=== PATIENT | female | born 1970 | race Two or more races ===

== ENCOUNTER → 2020-05-16 10:20 | Outpatient (BNVA) | payer OTHER, SELFPAY | PROVIDERS: PCP Internal Medicine; Referring Provider Internal Medicine; Visit Provider Nurse Practitioner | DX: K59.04 Chronic idiopathic constipation (principal); K21.9 Gastro-esophageal reflux disease without esophagitis; Q44.6 Cystic disease of liver | CPT/HCPCS: 99213 ==

== ENCOUNTER → 2020-06-12 13:35 | Outpatient (BNVA) | payer OTHER, SELFPAY | PROVIDERS: PCP Internal Medicine; Referring Provider Internal Medicine; Visit Provider Student in an Organized Health Care Education/Training Program | DX: M47.816 Spondylosis without myelopathy or radiculopathy, lumbar region (principal); Z79.899 Other long term (current) drug therapy | CPT/HCPCS: 99212 ==

== ENCOUNTER 2020-07-11 09:00 | Outpatient (RCR) | payer OTHER, SELFPAY ==
--- NOTE | 2020-06-14 10:44 | MHC.PT.EP ---
[facility] [place] [facility] [place] [facility] [place] [facility] [address] [place] [address] [phone] F: [phone] F: [phone] F: [phone] F: [phone] Physical Therapy Plan of Care Date of Evaluation: 06/14/20 Date of Surgery: N/A Diagnosis: M47.816 spondylosis without myelopathy or radiculopathy, lumbar region Assessment: pt presents to physical therapy with pain, decreased range of motion, decreased strength, impaired functional mobility, impaired postural awareness, and gait deviations. pt is a good candidate for skilled PT due to age, potential remediation of impairments, typical disease/condition progression and prognosis, comorbidities, and motivation. pt would benefit from tailored strengthening and stretching exercise program, functional training, gait training, postural re-training, neuromuscular re-education, modalities as needed for pain, equipment safety demonstration. Frequency and Duration: The patient will be seen 2x/wk for 4 wks Short Term Goals: pt will be I w/ HEP to promote self-management of condition. pt will demo proper sitting posture w/ lumbar roll to facilitate neutral spine. Usp Goals: pt will report <1/10 low back pain w/ standing for >30 min to facilitate full return to ADLs. pt will lift >30# object from floor to waist level w/ proper lifting mechanics x3 reps to facilitate full return to seat builder. Treatment Plan: Modalities to reduce pain, spasms and effusion. Manual therapy to restore motion and function. Therapeutic exercise to improve strength and flexibility. Neuromuscular re-education for posture and balance. Therapeutic activities to return to functional activities of daily living. Please sign and return to therapist. Thank you for your referral.
--- NOTE | 2020-07-12 09:28 | MHC.PT.DC ---
[facility] [place] [facility] [place] [facility] [place] Office [address] [phone] F: [phone] F: [phone] F: [phone] F: [phone] Physical Therapy Discharge Report Diagnosis: M47.816 spondylosis without myelopathy or radiculopathy, lumbar region Date of Surgery: N/A Date of Evaluation: 06/14/20 Date of Discharge: 07/12/20 Treatments to Date: 8 Cancellations to Date: 0 No Shows to Date: 0 Discharge Status: Improved Function Independent with HEP Recommend MD Follow-up Discharge Summary: The patient stated she feels physical therapy has helped her and she is a little better. She was still reporting high levels of pain even toward the end of the plan of care but insisted she is better. She would benefit from following up with her referring provider to assess other potential pain management options. She is independent with her home exercise program. She is discharged from this physical therapy plan of care. Electronically signed by: Paty Lee PT, DPT Please sign and return to therapist. Thank you for your referral.
== END 2020-07-12 09:28 | disposition other institution (70) ==
LOC: HO.PT 09:00
PROVIDERS: Visit Provider Student in an Organized Health Care Education/Training Program
DX: M47.816 Spondylosis without myelopathy or radiculopathy, lumbar region (principal)
CPT/HCPCS: 97110; 97161; 97530

== ENCOUNTER 2020-09-23 09:17 | Outpatient (REF) | payer OTHER, SELFPAY ==
--- NOTE | ~2020-09-23 | XR_ITS ---
EXAMINATION: RIGHT ELBOW, LEFT SHOULDER AND RIGHT KNEE X-RAY CLINICAL INFORMATION: Pain COMPARISON: None TECHNIQUE: 3 views of the right elbow, 4 views of the left shoulder and 4 views of the right knee FINDINGS: Right elbow: Bone alignment is normal. No fracture or dislocation is seen. Joint spaces are normal. Soft tissues are normal. Left shoulder: Bone alignment is normal. No acute fracture or dislocation is seen. There is a cortical irregularity of the superior lateral humeral head questionable for old Hill-Sachs deformity. Joint spaces are normal. Soft tissues are normal. Right knee: Bone alignment is normal. No fracture or dislocation is seen. The joint spaces are normal. There is no joint effusion. XR/XR knee RT 4V IMPRESSION: Normal right elbow and right knee. Left shoulder: Question old Hill-Sachs deformity of the left humeral head..
--- NOTE | ~2020-09-23 | XR_ITS ---
EXAMINATION: RIGHT ELBOW, LEFT SHOULDER AND RIGHT KNEE X-RAY CLINICAL INFORMATION: Pain COMPARISON: None TECHNIQUE: 3 views of the right elbow, 4 views of the left shoulder and 4 views of the right knee FINDINGS: Right elbow: Bone alignment is normal. No fracture or dislocation is seen. Joint spaces are normal. Soft tissues are normal. Left shoulder: Bone alignment is normal. No acute fracture or dislocation is seen. There is a cortical irregularity of the superior lateral humeral head questionable for old Hill-Sachs deformity. Joint spaces are normal. Soft tissues are normal. Right knee: Bone alignment is normal. No fracture or dislocation is seen. The joint spaces are normal. There is no joint effusion. XR/XR elbow RT 2V IMPRESSION: Normal right elbow and right knee. Left shoulder: Question old Hill-Sachs deformity of the left humeral head..
--- NOTE | ~2020-09-23 | XR_ITS ---
EXAMINATION: RIGHT ELBOW, LEFT SHOULDER AND RIGHT KNEE X-RAY CLINICAL INFORMATION: Pain COMPARISON: None TECHNIQUE: 3 views of the right elbow, 4 views of the left shoulder and 4 views of the right knee FINDINGS: Right elbow: Bone alignment is normal. No fracture or dislocation is seen. Joint spaces are normal. Soft tissues are normal. Left shoulder: Bone alignment is normal. No acute fracture or dislocation is seen. There is a cortical irregularity of the superior lateral humeral head questionable for old Hill-Sachs deformity. Joint spaces are normal. Soft tissues are normal. Right knee: Bone alignment is normal. No fracture or dislocation is seen. The joint spaces are normal. There is no joint effusion. XR/XR shoulder LT min 2V IMPRESSION: Normal right elbow and right knee. Left shoulder: Question old Hill-Sachs deformity of the left humeral head..
== END 2020-09-23 09:18 | disposition home or self-care (01) ==
LOC: HO.XRAY 09:17
PROVIDERS: PCP Internal Medicine; Visit Provider Internal Medicine
DX: M25.512 Pain in left shoulder (principal); M25.521 Pain in right elbow; M25.561 Pain in right knee
CPT/HCPCS: 73030; 73070; 73564

== ENCOUNTER → 2020-11-04 10:08 | Outpatient (BNVA) | payer OTHER, SELFPAY | PROVIDERS: PCP Internal Medicine; Visit Provider Nurse Practitioner ==

== ENCOUNTER 2020-11-13 08:36 | Outpatient (REF) | payer OTHER, SELFPAY ==
[2020-11-13 09:39] LABS: Alanine Aminotransferase 16 U/L (0-31); Albumin Level 3.9 g/dL (3.5-5.0); Alkaline Phosphatase 64 U/L (39-117); Anion Gap 9 (12-20); Aspartate Amino Transferase 18 U/L (5-31); Bilirubin Total 0.3 mg/dL (0.0-1.0); Blood Urea Nitrogen 14 mg/dL (9-16); Calcium 9.3 mg/dL (8.4-10.2); Carbon Dioxide 26 mmol/L (22-29); Chloride 106 mmol/L (96-108); Estimated Glomerular Filt Rate > 60; Glucose Random 109 mg/dL (60-115); Potassium 4.3 mmol/L (3.3-5.1); Sodium 137 mmol/L (135-145); Total Protein 7.2 g/dL (6.5-8.0)
[2020-11-13 09:54] LABS: TSH reflex Free T4 1.35 uIU/mL (0.32-4.0)
[2020-11-14 13:12] LABS: Alpha Fetoprotein 1.1 ng/mL
== END 2020-11-13 08:37 | disposition home or self-care (01) ==
LOC: HO.LAB 08:36
PROVIDERS: PCP Internal Medicine; Visit Provider Nurse Practitioner
DX: K21.9 Gastro-esophageal reflux disease without esophagitis (principal); K59.04 Chronic idiopathic constipation; Q44.6 Cystic disease of liver; R68.81 Early satiety; R10.13 Epigastric pain
CPT/HCPCS: 36415; 80053; 82105; 84443

== ENCOUNTER 2020-11-19 07:35 | Outpatient (REF) | payer OTHER, SELFPAY ==
--- NOTE | ~2020-11-19 | US_ITS ---
EXAMINATION: US ABDOMEN COMPLETE CLINICAL INFORMATION: Epigastric pain. Cystic disease of liver. GERD. COMPARISON: Ultrasound abdomen 03/29/2019 and 02/16/2017. MR abdomen 11/28/2014. TECHNIQUE: Real-time imaging of the abdominal viscera. FINDINGS: PANCREAS: Normal. ABDOMINAL AORTA: The proximal, mid, and distal segments are normal in caliber. INFERIOR VENA CAVA: Visualized portions are normal. LIVER: Multiple hepatic cysts are redemonstrated with the largest in the left hepatic lobe measuring up to 3.0 cm (previously 2.3 cm) and right hepatic lobe measuring up to 5 cm (previously 3.7 cm). The liver is normal in size. The liver contour is normal. Mildly increased hepatic parenchymal echogenicity, which can be seen in the setting of mild steatosis. Underlying hepatocellular disease cannot be excluded. There is no intrahepatic biliary duct dilatation seen. GALLBLADDER: Normal. The gallbladder is physiologically distended without evidence of stones, sludge, polyps, wall thickening, or pericholecystic fluid. COMMON BILE DUCT: Normal in caliber measuring 0.46 cm in diameter. RIGHT KIDNEY: Normal. No hydronephrosis. No renal calculi or focal parenchymal lesions. The kidney measures 11.3 cm in maximum dimension. LEFT KIDNEY: Normal. No hydronephrosis. No renal calculi or focal parenchymal lesions. The kidney measures 11.0 cm in maximum dimension. SPLEEN: Probable 1.1 cm splenule. The spleen measures 7.2 cm in maximum dimension. FREE FLUID: None. US/US abdomen complete IMPRESSION: Redemonstration of multiple hepatic cysts, slightly increased in size when compared to the examination from 2019. No solid hepatic parenchymal lesion or biliary ductal dilatation.
== END 2020-11-19 07:36 | disposition home or self-care (01) ==
LOC: HO.US 07:35
PROVIDERS: PCP Internal Medicine; Visit Provider Nurse Practitioner
DX: K59.04 Chronic idiopathic constipation (principal); K21.9 Gastro-esophageal reflux disease without esophagitis; Q44.6 Cystic disease of liver; R10.13 Epigastric pain; R68.81 Early satiety
CPT/HCPCS: 76700

== ENCOUNTER → 2020-11-26 09:05 | Outpatient (BNVA) | payer OTHER, SELFPAY | PROVIDERS: PCP Internal Medicine; Visit Provider Nurse Practitioner ==

== ENCOUNTER → 2020-12-11 08:18 | Outpatient (REF) | payer OTHER, SELFPAY ==
--- NOTE | ~2020-12-11 | NM_ITS ---
EXAMINATION: RADIONUCLIDE SOLID FOOD GASTRIC EMPTYING 4-HOUR STUDY CLINICAL INFORMATION: Epigastric pain, nausea, GERD, fullness, burning COMPARISON: None. TECHNIQUE: A modified standard meal consisting of 1 oz of Egg Beaters brand tagged with 1 mCi Tc-99m Sulfur Colloid, 6 oz water, no and toast was administered orally to the patient. Images were obtained using a dual head gamma camera in the anterior and posterior projections over of the stomach immediately post ingestion and at hourly intervals up to 3 hours post ingestion. Images were not obtained at 4 hours due to the minimal retention at 3 hours. The anterior and posterior counts at each time interval were averaged using the geometric mean and expressed as percentage of the immediate post ingestion counts. FINDINGS: The patient was not able to ingest the entire standard meal normally consisting of 4 ounces of egg whites, toast, and jelly and 8 ounces of water. There is good visualization of activity in the stomach immediately post ingestion. As the study progresses, there is good clearance of activity from the stomach and visualization of progressively increasing small bowel activity. By the end of the study, there is almost no retention noted in the stomach. Retention in the stomach at each time interval was: 1 hour 55% (normal 37%-90%) 2 hours 32% (normal 30%-60%) 3 hours 2% 4 hours (Not Obtained) (normal 0%-10%) NM/NM gastric emptying study IMPRESSION: Probable normal solid food gastric emptying study. Because the patient was not able to ingest fully the standard meal, the measured retention may not reflect gastric emptying following a full meal but the minimal retention noted suggests no significant abnormal retention of solid food is present.
== END ==
LOC: HO.NUCMED 08:18
PROVIDERS: PCP Internal Medicine; Visit Provider Nurse Practitioner
DX: Q44.6 Cystic disease of liver (principal); R10.13 Epigastric pain; R68.81 Early satiety
CPT/HCPCS: 78264; A9541

== ENCOUNTER → 2021-01-30 09:16 | Outpatient (BNVA) | payer OTHER, SELFPAY | PROVIDERS: PCP Internal Medicine; Visit Provider Nurse Practitioner ==

== ENCOUNTER 2021-03-04 13:50 | Outpatient (REF) | payer OTHER, SELFPAY ==
--- NOTE | ~2021-03-04 | MM_ITS ---
EXAMINATION: MM SCREENING DIGITAL BREAST TOMOSYNTHESIS, BILATERAL CLINICAL INFORMATION: Screening. Asymptomatic. The lifetime risk of breast cancer based on the Tyrer-Cuzick Model is 7.7%. COMPARISON: Mammography: 02/27/2020 and studies dating back to 10/08/2014. TECHNIQUE: Digital breast tomosynthesis is performed in both the craniocaudal and mediolateral oblique views along with computer-aided detection (CAD). Synthesized 2D images are generated from the tomosynthesis. FINDINGS: There are scattered areas of fibroglandular density (ACR BI-RADS breast composition Category b). There is a stable parenchymal pattern within the right breast. Within the deep medial aspect of the left breast there is a region of architectural distortion with a lucent central region which is more prominent than on prior studies. Spot compression views and possible ultrasound at this location recommended. MM/MM tomosynthesis screening BI IMPRESSION: Left breast density for further evaluation as described above. ASSESSMENT: BI-RADS 0: Incomplete - Need Additional Imaging Evaluation RECOMMENDATION: 1. Additional views of the left breast. 2. Targeted ultrasound if warranted after review of the additional views. 3. Radiology department staff will contact the patient for additional imaging. This patient's information was entered into a reminder system with a target due date for their next mammogram.
== END 2021-03-04 13:51 | disposition home or self-care (01) ==
LOC: HO.MAMMO 13:50
PROVIDERS: PCP Internal Medicine; Visit Provider Internal Medicine
DX: Z12.31 Encounter for screening mammogram for malignant neoplasm of breast (principal)
CPT/HCPCS: 77063; 77067

== ENCOUNTER 2021-03-07 08:24 | Outpatient (REF) | payer OTHER, SELFPAY ==
--- NOTE | ~2021-03-07 | MM_ITS ---
EXAMINATION: MM DIAGNOSTIC DIGITAL BREAST TOMOSYNTHESIS, LEFT CLINICAL INFORMATION: Recall for question of architectural changes medial left breast at screening. COMPARISON: Mammography: 03/04/2021, 02/27/2020, 01/25/2019 TECHNIQUE: Digital breast tomosynthesis is performed. 2D images are generated from the tomosynthesis. The following views are obtained: 3-D spot CC, 3-D spot MLO, standard ML. FINDINGS: There are scattered areas of fibroglandular density (ACR BI-RADS breast composition Category b). The additional views show no architectural abnormality. There is no three-dimensional mass or developing density appreciated. As a precaution, short interval six-month follow-up mammography will be requested to reassess. Results are discussed with the patient at time of visit, using an interpreter for the deaf. MM/MM tomosynthesis added views L IMPRESSION: Additional views show no architectural abnormality in the area of recent imaging concern. ASSESSMENT: BI-RADS 3: Probably Benign RECOMMENDATION: Diagnostic left mammography in 6 months. This patient's information was entered into a reminder system with a target due date for their next mammogram.
== END 2021-03-07 08:25 | disposition home or self-care (01) ==
LOC: HO.MAMMO 08:24
PROVIDERS: Visit Provider Internal Medicine
DX: R92.2 Inconclusive mammogram (principal)
CPT/HCPCS: 77061; 77065

== ENCOUNTER 2021-06-10 08:44 | Outpatient (REF) | payer OTHER, SELFPAY ==
--- NOTE | ~2021-06-10 | XR_ITS ---
EXAMINATION: XR LUMBOSACRAL SPINE CLINICAL INFORMATION: Spondylosis without myelopathy or radiculopathy COMPARISON: Previous lumbar spine x-ray December [address] of the lumbar spine August 2014 TECHNIQUE: Three views of the lumbosacral spine. FINDINGS: There is a transitional vertebral body segment or 6 lumbar-type vertebral bodies. For the purposes of this level are designated to match the prior exams from 2013 and 2014 with the transitional segment designated superiorly. Bone alignment is normal. No fracture or dislocation is seen. There is degenerative disc disease at L2-L3. There is lower lumbar spine facet arthritis. XR/XR lumbar spine 2-3V IMPRESSION: Transitional vertebral body segment. Degenerative disc disease at L2-L3 and lower lumbar spine facet arthritis.
[2021-06-10 10:39] LABS: Alanine Aminotransferase 15 U/L (0-31); Alkaline Phosphatase 58 U/L (39-117); Anion Gap 11 (12-20); Aspartate Amino Transferase 17 U/L (5-31); Bilirubin Total 0.3 mg/dL (0.0-1.0); Blood Urea Nitrogen 12 mg/dL (9-16); Calcium 9.6 mg/dL (8.4-10.2); Carbon Dioxide 27 mmol/L (22-29); Chloride 105 mmol/L (96-108); Estimated Glomerular Filt Rate > 60; Glucose Random 91 mg/dL (60-115); Potassium 4.6 mmol/L (3.3-5.1); Sodium 138 mmol/L (135-145); Total Protein 7.5 g/dL (6.5-8.0)
== END 2021-06-10 08:45 | disposition home or self-care (01) ==
LOC: HO.XRAY 08:44
PROVIDERS: PCP Internal Medicine; Visit Provider Nurse Practitioner Family
DX: M47.816 Spondylosis without myelopathy or radiculopathy, lumbar region (principal)
CPT/HCPCS: 36415; 72100; 80053; 99212

== ENCOUNTER 2021-09-08 12:47 | Outpatient (REF) | payer OTHER, SELFPAY ==
--- NOTE | ~2021-09-08 | MM_ITS ---
EXAMINATION: MM DIAGNOSTIC DIGITAL BREAST TOMOSYNTHESIS, LEFT CLINICAL INFORMATION: Short interval six-month follow-up for question of architectural changes on prior screening mammography with no persistent abnormality on additional views. Assess for developing density. No known family history breast cancer. The lifetime risk of breast cancer based on the Tyrer-Cuzick Model is 8%. COMPARISON: Mammography: 03/07/2021, 03/04/2021 (BI-RADS 0), 02/27/2020, 01/25/2019, 12/20/2017, 11/27/2016, 10/30/2015 TECHNIQUE: Digital breast tomosynthesis is performed in both the craniocaudal and mediolateral oblique views along with computer-aided detection (CAD). Synthesized 2D images are generated from the tomosynthesis. FINDINGS: There are scattered areas of fibroglandular density (ACR BI-RADS breast composition Category b). There are no architectural changes or developing density. No architectural distortion or mass or abnormal calcifications. Parenchymal pattern appears similar to prior studies. The skin contours are smooth. Results are provided to the patient at time of visit by the technologist. MM/MM tomosynthesis diagnostic LT IMPRESSION: No mammographic evidence of malignancy. ASSESSMENT: BI-RADS 2: Benign RECOMMENDATION: Routine annual mammography screening, due in 6 months. This patient's information was entered into a reminder system with a target due date for their next mammogram.
== END 2021-09-08 12:48 | disposition home or self-care (01) ==
LOC: HO.MAMMO 12:47
PROVIDERS: PCP Internal Medicine; Visit Provider Internal Medicine
DX: R92.1 Mammographic calcification found on diagnostic imaging of breast (principal)
CPT/HCPCS: 77061; 77065

== ENCOUNTER 2021-12-22 09:43 | Outpatient (REF) | payer OTHER, SELFPAY ==
--- NOTE | ~2021-12-22 | XR_ITS ---
EXAMINATION: XR SHOULDER, LEFT CLINICAL INFORMATION: Pain COMPARISON: Previous x-ray September 2020 TECHNIQUE: AP external rotation, Grashey, scapular Y, and axillary views of the left shoulder. FINDINGS: Bone alignment is normal. No fracture or dislocation is seen. Joint spaces are normal. There are cystic changes of the greater tuberosity. Soft tissues are normal. XR/XR shoulder LT 1V IMPRESSION: Cystic changes at the greater tuberosity otherwise unremarkable exam
--- NOTE | ~2021-12-22 | XR_ITS ---
EXAMINATION: XR ELBOW, LEFT CLINICAL INFORMATION: Pain COMPARISON: None TECHNIQUE: AP, lateral, and oblique views of the left elbow. FINDINGS: The bones and soft tissues are normal. No fracture or joint effusion. Alignment is anatomic. Joint spaces are maintained. XR/XR elbow LT 2V IMPRESSION: Normal left elbow.
== END 2021-12-22 09:44 | disposition home or self-care (01) ==
LOC: HO.XRAY 09:43
PROVIDERS: PCP Internal Medicine; Visit Provider Internal Medicine
DX: M25.522 Pain in left elbow (principal); M25.512 Pain in left shoulder
CPT/HCPCS: 73020; 73070

== ENCOUNTER 2022-03-03 07:45 | Outpatient (REF) | payer OTHER, SELFPAY ==
[2022-03-04 12:58] LABS: H Pylori Breath Test Negative (Negative)
== END 2022-03-03 07:46 | disposition home or self-care (01) ==
LOC: CF 07:45
PROVIDERS: PCP Internal Medicine; Referring Provider Internal Medicine; Visit Provider Nurse Practitioner
DX: R10.13 Epigastric pain (principal); K21.9 Gastro-esophageal reflux disease without esophagitis; R11.2 Nausea with vomiting, unspecified; R68.81 Early satiety; K59.04 Chronic idiopathic constipation
CPT/HCPCS: 36415; 83013; 99212

== ENCOUNTER → 2022-03-31 08:31 | Outpatient (BNVA) | payer OTHER, SELFPAY | PROVIDERS: PCP Internal Medicine; Referring Provider Internal Medicine; Visit Provider Nurse Practitioner | DX: R68.81 Early satiety (principal); R11.2 Nausea with vomiting, unspecified; K21.9 Gastro-esophageal reflux disease without esophagitis; K59.04 Chronic idiopathic constipation | CPT/HCPCS: 99212 ==

== ENCOUNTER → 2022-06-23 09:28 | Outpatient (BNVA) | payer OTHER, SELFPAY | PROVIDERS: PCP Internal Medicine; Visit Provider Nurse Practitioner | DX: K21.9 Gastro-esophageal reflux disease without esophagitis (principal); R11.2 Nausea with vomiting, unspecified; R68.81 Early satiety | CPT/HCPCS: 99212 ==

== ENCOUNTER → 2022-07-02 11:05 | Outpatient (BNVA) | payer OTHER, SELFPAY | PROVIDERS: PCP Internal Medicine; Referring Provider Internal Medicine; Visit Provider Nurse Practitioner Family | DX: M47.816 Spondylosis without myelopathy or radiculopathy, lumbar region (principal) | CPT/HCPCS: 99212 ==

== ENCOUNTER 2022-07-08 10:17 | Outpatient (REF) | payer OTHER, SELFPAY ==
--- NOTE | ~2022-07-08 | XR_ITS ---
EXAMINATION: XR LUMBOSACRAL SPINE CLINICAL INFORMATION: Lower back pain COMPARISON: 06/10/2021 TECHNIQUE: Three views of the lumbosacral spine. FINDINGS: No fracture or subluxation. Vertebral body height and alignment maintained. Disc space narrowing at L2-L3 with vacuum disc phenomenon. Endplate osteophytes are present at this level. The sacroiliac joints are symmetric. The sacrum is intact. XR/XR lumbar spine 2-3V IMPRESSION: Degenerative changes at L2-L3. Similar appearance to prior.
[2022-07-08 10:29] LABS: MANUAL DIFF FLAG NO
[2022-07-08 11:00] LABS: Basophils Absolute Auto 0.1 X10*3/uL (0.0-0.2); Basophils Percent Auto 0.5 % (0-2); Eosinophils Absolute Auto 0.2 X10*3/uL (0.0-0.4); Eosinophils Percent Auto 1.5 % (0-4); Hemoglobin 12.1 g/dl (12.0-16.0); Imm Gran Abs Auto 0.02 X10*3/uL (0.00-0.03); Imm Gran Pct Auto 0.2 % (0.0-0.4); Lymphocytes Absolute Auto 2.7 X10*3/uL (1.2-4.9); Lymphocytes Percent Auto 27.5 % (20-40); Mean Corpuscular HGB Conc 31.8 g/dl (31.0-35.0); Mean Corpuscular Hemoglobin 26.2 pg (27.0-33.0); Mean Corpuscular Volume 82.4 fL (80.0-98.0); Mean Platelet Volume 9.3 fL (9.4-12.3); Monocytes Absolute Auto 0.7 X10*3/uL (0.1-1.2); Monocytes Percent Auto 6.9 % (2-11); Neutrophils Absolute Auto 6.2 x10*3/uL (2.0-8.3); Neutrophils Percent Auto 63.4 % (45-73); Platelet Count 312 X10*3/uL (160-400); Red Blood Count 4.61 X10*6/uL (4.20-5.50); White Blood Count 9.8 X10*3/uL (4.8-10.8)
[2022-07-08 11:10] LABS: Alanine Aminotransferase 22 U/L (0-31); Albumin Level 4.2 g/dL (3.5-5.0); Alkaline Phosphatase 69 U/L (39-117); Anion Gap 10 (12-20); Aspartate Amino Transferase 22 U/L (5-31); Bilirubin Total 0.3 mg/dL (0.0-1.0); Blood Urea Nitrogen 16 mg/dL (9-16); C Reactive Protein 0.32 mg/dL (< or = 0.50); Calcium 9.7 mg/dL (8.4-10.2); Carbon Dioxide 27 mmol/L (22-29); Chloride 106 mmol/L (96-108); Estimated Glomerular Filt Rate > 60; Glucose Random 101 mg/dL (60-115); Potassium 4.6 mmol/L (3.3-5.1); Sodium 138 mmol/L (135-145); Total Protein 7.5 g/dL (6.5-8.0)
[2022-07-08 11:39] LABS: Erythrocyte Sedimentation Rate 14 MM/HR (0-20)
== END 2022-07-08 10:18 | disposition home or self-care (01) ==
LOC: HO.LAB 10:17
PROVIDERS: PCP Internal Medicine; Visit Provider Nurse Practitioner Family
DX: M54.50 Low back pain, unspecified (principal); M47.816 Spondylosis without myelopathy or radiculopathy, lumbar region
CPT/HCPCS: 36415; 72100; 80053; 85025; 85652; 86140

== ENCOUNTER 2022-11-02 08:33 | Outpatient (REF) | payer OTHER, SELFPAY ==
--- NOTE | ~2022-11-02 | MM_ITS ---
EXAMINATION: MM SCREENING DIGITAL BREAST TOMOSYNTHESIS, BILATERAL CLINICAL INFORMATION: Screening. Asymptomatic. The lifetime risk of breast cancer based on the Tyrer-Cuzick Model is 8%. COMPARISON: Mammography: 09/08/2021, 03/07/2021, 03/04/2021, 02/27/2020, 01/25/2019 TECHNIQUE: Digital breast tomosynthesis is performed in both the craniocaudal and mediolateral oblique views along with computer-aided detection (CAD). Synthesized 2D images are generated from the tomosynthesis. Additional exaggerated left CC view is provided. FINDINGS: There are scattered areas of fibroglandular density (ACR BI-RADS breast composition Category b). There are no significant masses, abnormal calcifications, or other abnormalities. No architectural abnormality or developing density or significant change from prior studies. There is biopsy clip marker posterior 12:00 right breast. The axilla are unremarkable. MM/MM tomosynthesis screening BI IMPRESSION: No mammographic evidence of malignancy. ASSESSMENT: BI-RADS 1: Negative RECOMMENDATION: Routine annual mammography screening. This patient's information was entered into a reminder system with a target due date for their next mammogram.
== END 2022-11-02 08:34 | disposition home or self-care (01) ==
LOC: HO.MAMMO 08:33
PROVIDERS: PCP Internal Medicine; Visit Provider Internal Medicine
DX: Z12.31 Encounter for screening mammogram for malignant neoplasm of breast (principal)
CPT/HCPCS: 77063; 77067

== ENCOUNTER 2022-12-03 08:37 | Outpatient (REF) | payer OTHER, SELFPAY ==
[2022-12-05 04:04] LABS: HPV mRNA E6/E7 rflx Not Detected (Not Detected)
== END 2022-12-03 08:38 | disposition home or self-care (01) ==
LOC: HO.LNP 08:37
PROVIDERS: PCP Internal Medicine; Visit Provider Obstetrics & Gynecology
DX: Z01.419 Encounter for gynecological examination (general) (routine) without abnormal findings (principal); N90.89 Other specified noninflammatory disorders of vulva and perineum
CPT/HCPCS: 87624; 88142

== ENCOUNTER → 2022-12-22 08:56 | Outpatient (BNVA) | payer OTHER, SELFPAY | PROVIDERS: PCP Internal Medicine; Visit Provider Nurse Practitioner | DX: Z01.818 Encounter for other preprocedural examination (principal); K21.9 Gastro-esophageal reflux disease without esophagitis; R10.13 Epigastric pain; R11.2 Nausea with vomiting, unspecified; R68.81 Early satiety; Z79.899 Other long term (current) drug therapy | CPT/HCPCS: 99212 ==

== ENCOUNTER 2022-12-30 08:42 | Outpatient (REF) | payer OTHER, SELFPAY | END 2022-12-30 08:43 | disposition home or self-care (01) | LOC: HO.LNP 08:42 | PROVIDERS: PCP Internal Medicine; Visit Provider Obstetrics & Gynecology | DX: N90.89 Other specified noninflammatory disorders of vulva and perineum (principal) | CPT/HCPCS: 56605; 88305 ==

== ENCOUNTER → 2023-01-20 08:43 | Outpatient (BNVA) | payer OTHER, SELFPAY | PROVIDERS: PCP Internal Medicine; Visit Provider Obstetrics & Gynecology | DX: N90.89 Other specified noninflammatory disorders of vulva and perineum (principal) | CPT/HCPCS: 99212 ==

== ENCOUNTER 2023-01-29 08:21 | Outpatient (REF) | payer OTHER, SELFPAY ==
[2023-01-29 08:34] LABS: MANUAL DIFF FLAG NO
[2023-01-29 09:24] LABS: Basophils Absolute Auto 0.1 X10*3/uL (0.0-0.2); Basophils Percent Auto 0.6 % (0-2); Eosinophils Absolute Auto 0.2 X10*3/uL (0.0-0.4); Hematocrit 36.8 % (37.0-47.0); Hemoglobin 11.7 g/dl (12.0-16.0); Imm Gran Abs Auto 0.04 X10*3/uL (0.00-0.03); Imm Gran Pct Auto 0.4 % (0.0-0.4); Lymphocytes Absolute Auto 3.3 X10*3/uL (1.2-4.9); Lymphocytes Percent Auto 29.9 % (20-40); Mean Corpuscular HGB Conc 31.8 g/dl (31.0-35.0); Mean Corpuscular Hemoglobin 26.6 pg (27.0-33.0); Mean Corpuscular Volume 83.6 fL (80.0-98.0); Mean Platelet Volume 10.1 fL (9.4-12.3); Monocytes Absolute Auto 0.7 X10*3/uL (0.1-1.2); Monocytes Percent Auto 6.3 % (2-11); Neutrophils Absolute Auto 6.7 x10*3/uL (2.0-8.3); Neutrophils Percent Auto 60.8 % (45-73); Platelet Count 346 X10*3/uL (160-400); Red Cell Distribution Width 13.7 % (11.0-16.0); White Blood Count 11.1 X10*3/uL (4.8-10.8)
[2023-01-29 09:51] LABS: Alanine Aminotransferase 12 U/L (0-31); Albumin Level 3.9 g/dL (3.5-5.0); Alkaline Phosphatase 57 U/L (39-117); Anion Gap 13 (12-20); Aspartate Amino Transferase 16 U/L (5-31); Bilirubin Total 0.4 mg/dL (0.0-1.0); Blood Urea Nitrogen 15 mg/dL (9-16); Calcium 9.7 mg/dL (8.4-10.2); Chloride 104 mmol/L (96-108); Estimated Glomerular Filt Rate > 60; Glucose Random 125 mg/dL (60-115); Sodium 139 mmol/L (135-145); Total Protein 7.6 g/dL (6.5-8.0)
[2023-01-29 09:53] LABS: Carbon Dioxide 26 mmol/L (22-29)
== END 2023-01-29 08:22 | disposition home or self-care (01) ==
LOC: HO.LAB 08:21
PROVIDERS: Nurse Practitioner; PCP Internal Medicine; Visit Provider Internal Medicine
DX: Z01.818 Encounter for other preprocedural examination (principal)
CPT/HCPCS: 36415; 80053; 85025

== ENCOUNTER → 2023-02-03 08:36 | Outpatient (BNVA) | payer OTHER, SELFPAY | PROVIDERS: PCP Internal Medicine; Visit Provider Nurse Practitioner | DX: K21.9 Gastro-esophageal reflux disease without esophagitis (principal); R11.2 Nausea with vomiting, unspecified; R68.81 Early satiety; R10.13 Epigastric pain | CPT/HCPCS: 99212 ==

== ENCOUNTER 2023-02-09 08:15 | Outpatient (REF) | payer OTHER, SELFPAY ==
--- NOTE | ~2023-02-09 | US_ITS ---
EXAMINATION: NONINVASIVE ANKLE BRACHIAL INDICES OF BOTH LOWER EXTREMITIES CLINICAL INFORMATION: Peripheral vascular disease. COMPARISON: None. TECHNIQUE: Ankle-brachial indices were calculated bilaterally and PVR tracings were performed at the level of the ankles. This study was performed at rest only. FINDINGS: a) AT REST: 1. The ankle-brachial indices are: Right 1.32 and left 1.32. >0.97-1.25 = normal - no significant arterial disease. 0.75-0.96 = mild peripheral arterial disease. 0.5-0.74 = moderate peripheral arterial disease. <0.50 = severe peripheral arterial disease. 2. PVR waveforms at ankle: Normal. US/US MANUEL complete IMPRESSION: Normal PVR waveforms at the ankle. Elevated MANUEL suggests atherosclerotic calcification.
== END 2023-02-09 08:16 | disposition home or self-care (01) ==
LOC: HO.US 08:15
PROVIDERS: PCP Internal Medicine; Visit Provider Nurse Practitioner Family
DX: I73.9 Peripheral vascular disease, unspecified (principal); M79.604 Pain in right leg; M79.605 Pain in left leg
CPT/HCPCS: 93923

== ENCOUNTER 2023-03-16 11:11 | Outpatient (AMB) | payer OTHER, SELFPAY ==
--- NOTE | 2023-03-16 11:19 | MHC.OFFVIS ---
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 Patient is not diabetic, patient is not a smoker, no hx of blood clots. Patient sated she suffers from back pains. Patient has seen in the past and has hx of vein procedures on both legs. 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 She reports that it is on the left lower extremity more so in the back of the knee. She is a nonsmoker nondiabetic. She reports she can walk about a block with no significant difficulty. She also does have a prior history of back pain issues as well. She now presents to us for vascular evaluation. [facility] Medical History Chronic idiopathic constipation Depression with anxiety Fibromyalgia DILAN (generalized anxiety disorder) Insomnia Left elbow pain Left shoulder pain Left shoulder pain Lumbar spondylosis Mild recurrent major depression Right elbow pain Right knee pain Surgical History H/O breast biopsy History of tubal ligation Family History Father Leukemia Cancer Diabetes Mother Arthritis HTN (hypertension) Family/Other Thyroid cancer Diabetes HTN (hypertension) Maternal Grandmother Ovarian cancer Social History Housing: Apartment Alcohol intake: never Patient Tobacco Use Status: Never used Tobacco e-Cigarette/Vaping Use: Never Used Second Hand Smoke Exposure: No service: No Current occupational status: unemployed Cognitive needs: No Hearing needs: No Vision needs: No Female Reproductive History Menstrual Age of Menarche: 10 Review of Systems Const All systems reviewed & are unremarkable except as noted in HPI and below Reports no additional complaints ENT Reports Normal hearing present Card Denies chest pain, Denies chest pain at rest, Denies chest pain with activity and Denies pedal edema Resp Denies cough GI Denies abdominal pain Musc Denies abnormal gait, Denies muscle cramps and Denies radiating pain into limb Skin/Breast Denies skin ulcer and Denies wounds Neuro Reports Normal hearing present and Denies abnormal gait Psych Reports no additional complaints Physical Exam Const General: cooperative, healthy appearing and comfortable Orientation/consciousness: oriented to person, oriented to place and oriented to time HEENT Head: Yes normal to inspection Neck Neck: Yes normal visual inspection Carotids: no bruits Chest Chest palpation & inspection: normal inspection of the chest Resp Effort & Inspection: normal respiratory effort and able to speak in complete sentences Auscultation: clear to auscultation bilaterally, no crackles, no rales, no rhonchi and no wheezes Cardio Rate: regular rate Rhythm: regular rhythm Heart sounds: S1 normal heart sound present and S2 normal heart sound present Bruits: no carotid bruits Peripheral pulses: Peripheral pulses 2+ throughout GI Inspection: Yes normal to inspection Skin Wounds: no wounds Hair: normal Neuro General: oriented to person, oriented to place and oriented to time Cranial nerves: Yes CN's II-XII intact bilaterally and Yes Normal hearing present Cognition (Neuro): normal cognition Motor exam (neuro): 5/5 motor strength present throughout Extrem Other: venous exam: No significant superficial varicosities or spider telangiectasias, minimal edema General: No clubbing, No cyanosis and No edema Psych Appearance: grossly normal Mental Status: mental status grossly normal Speech and movement: Normal speech and movement present Results Reviewed Results Reviewed: Noninvasive arterial testing dated 02/09/2023 demonstrates MANUEL on the right of 1.32 and on the left of 1.32. Written report and images were reviewed. Assessment & Plan Assessment & Plan (1) Bilateral leg pain: Code(s): M79.604 - Pain in right leg; M79.605 - Pain in left leg Plan: In short her pain does not appear to be vascular in nature. She does have palpable dorsalis pedis pulses bilaterally along with arterial testing which is within the range of normal limits. In addition I did not appreciate any significant venous swelling. At the current time this may be more musculoskeletal in nature as she does complain of knee pain in particular posterior knee pain. She does reports some relief with naproxen. Should this continue would recommend orthopedic evaluation. She will follow up with us on an as-needed basis. Thank you for allowing us to assist in her care. If there are any questions or concerns please do not hesitate to contact us. Coding Level of Care Code Est Pt Level 4 (04219) Diagnoses Bilateral leg pain M79.604; M79.605
== END 2023-03-16 12:45 | disposition home or self-care (01) ==
PROVIDERS: PCP Internal Medicine; Visit Provider Surgery Vascular Surgery
DX: M79.604 Pain in right leg (principal); M79.605 Pain in left leg
CPT/HCPCS: 99203

== ENCOUNTER → 2023-03-16 11:11 | Outpatient (BNVA) | payer OTHER, SELFPAY | PROVIDERS: PCP Internal Medicine; Visit Provider Surgery Vascular Surgery | DX: M79.604 Pain in right leg (principal); M79.605 Pain in left leg | CPT/HCPCS: 99202 ==

== ENCOUNTER 2023-05-12 08:48 | Outpatient (AMB) | payer OTHER, SELFPAY ==
--- NOTE | 2023-05-12 09:03 | MHC.OFFVIS ---
Intake Vital Signs 05/12/23 09:07 Height 5 ft 2 in Weight 137 lb 9.095 oz BMI 25.2 BP 111/67 Blood Pressure Location Lt brachial Position Sitting Pulse 94 Intake Visit Reasons: 3 month follow up Intake Note: Patient returns to in office visit today in 3 months follow up of epigastric pain. CC: Patient reports doing a little bit better from epigastric pain. Denies having any GI symptoms today. 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 With this she is now satisfied with her GI regimen and agreeable to a 3 mos follow up. She also continues on her omeprazole 40 mg once a day. Her epigastric pain GERD now very well controlled. She is having left leg pain and has an upcoming US for this. She has not yet been contacted to schedule the colonoscopy. ROV 3 mos. (2) Nausea and vomiting: Code(s): R11.2 - Nausea with vomiting, unspecified (3) Early satiety: Comment: GASTRIC EMPTYING STUDY MPRESSION: Probable normal solid food gastric emptying study. Because the patient was not able to ingest fully the standard meal, the measured retention may not reflect gastric emptying following a full meal but the minimal retention noted suggests no significant abnormal retention of solid food is present. Dictated By:ROBERTO CURRY MDSigned By:<Electronically signed by ROBERTO CURRY MD in OV>12/11/20 Code(s): R68.81 - Early satiety (4) Epigastric pain: Code(s): R10.13 - Epigastric pain COLONOSCOPY BIOPSY TODAY'S VISIT GUYANESE.#Kaylynn Live She has not yet been contacted to schedule the colonoscopy. I send another message to the schedulers. I am not perfect but much better. Continues on reglan w/o s/e. The omeprazole 40mg qd is controlling her GERD. With this she is satisfied with her GI regimen. ROV 6 mos. PFSH Medical History Chronic idiopathic constipation Depression with anxiety Fibromyalgia DILAN (generalized anxiety disorder) Insomnia Left elbow pain Left shoulder pain Left shoulder pain Lumbar spondylosis Mild recurrent major depression Right elbow pain Right knee pain Surgical History H/O breast biopsy History of tubal ligation Family History Father Leukemia Cancer Diabetes Mother Arthritis HTN (hypertension) Family/Other Thyroid cancer Diabetes HTN (hypertension) Maternal Grandmother Ovarian cancer Social History Housing: Apartment Alcohol intake: never Patient Tobacco Use Status: Never used Tobacco e-Cigarette/Vaping Use: Never Used Second Hand Smoke Exposure: No service: No Current occupational status: unemployed Cognitive needs: No Hearing needs: No Vision needs: No Female Reproductive History Menstrual Age of Menarche: 10 Review of Systems Const Denies fatigue, Denies fever(s), Denies night sweats, Denies poor appetite and Denies weight loss ENT Reports Normal hearing present, Denies dental pain, Denies dysphagia, Denies hearing loss, Denies mouth pain, Denies odynophagia, Denies throat swelling, Denies tongue swelling and Reports other (Dentition adequate) Card Reports no additional complaints Resp Reports no additional complaints GI Denies abdominal pain, Denies melena, Denies bloating, Denies hematochezia, Denies constipation, Denies GI cramping, Denies dysphagia, Denies excessive flatus, Reports early satiety, Reports heartburn, Denies diarrhea, Denies nausea, Denies odynophagia, Denies vomiting and Denies hematemesis Skin/Breast Denies pruritus, Denies lesions, Denies rash and Denies jaundice Neuro Reports Normal hearing present and Denies Abnormal speech present Endo Denies fatigue Aller/Immun Denies throat swelling and Denies tongue swelling Physical Exam Vital Signs: Last Vital Signs Pulse 94 05/12/23 09:07 BP 111/67 05/12/23 09:07 BMI result Body Mass Index 25.2 Const General: cooperative, no acute distress, well developed and well groomed Nutritional Appearance: well nourished Orientation/consciousness: oriented to person, oriented to place and oriented to time Limitations: language barrier HEENT Head: Yes normocephalic and Yes atraumatic Eyes General: appearance normal, both eyes and all related structures Pupils: Equal, round and reactive pupils present Neck Neck: Yes normal visual inspection and Yes no lymphadenopathy Thyroid: Thyroid normal Resp Effort & Inspection: normal respiratory effort and able to speak in complete sentences Auscultation: clear to auscultation bilaterally Cardio Rate: regular rate Rhythm: regular rhythm Heart sounds: Normal, physiologic split S2 sound present Peripheral pulses: radial pulses present and posterior tibial pulses present GI Inspection: No distended and No Abdominal panniculus present Palpation (GI): Soft to palpation, nontender, no guarding, not rigid and No hepatosplenomegaly present Percussion: Yes normal to percussion Auscultation: normal bowel sounds Rectal Exam - Female: deferred Skin General skin exam: no rashes or lesions noted, turgor normal, skin not dry, no jaundice, No spider nevi and no striae Rashes: no rashes Nails: normal Neuro General: oriented to person, oriented to place and oriented to time Cranial nerves: Yes Equal, round and reactive pupils present and Yes Normal hearing present Speech: No Abnormal speech present Extrem General: Yes normal to inspection, No clubbing, No cyanosis and No edema Psych Appearance: grossly normal and well kempt Mental Status: mental status grossly normal Speech and movement: Normal speech and movement present Affect: normal affect Attitude: cooperative Thought process: Normal thought process present and not confabulating Thought content: Normal thought content present Insight: Limited insight present (Psych) Judgement: Limited judgement present (Psych) Assessment & Plan Assessment & Plan (1) GERD (gastroesophageal reflux disease): Code(s): K21.9 - Gastro-esophageal reflux disease without esophagitis Qualifiers: Esophagitis presence: without esophagitis Qualified Code(s): K21.9 - Gastro-esophageal reflux disease without esophagitis Plan: COLONOSCOPY BIOPSY TODAY'S VISIT [place].#Kaylynn Live She has not yet been contacted to schedule the colonoscopy. I send another message to the schedulers. I am not perfect but much better. Continues on reglan w/o s/e. The omeprazole 40mg qd is controlling her GERD. With this she is satisfied with her GI regimen. ROV 6 mos. (2) Early satiety: Comment: GASTRIC EMPTYING STUDY MPRESSION: Probable normal solid food gastric emptying study. Because the patient was not able to ingest fully the standard meal, the measured retention may not reflect gastric emptying following a full meal but the minimal retention noted suggests no significant abnormal retention of solid food is present. Dictated By:ROBERTO CURRY MDSigned By:<Electronically signed by ROBERTO CURRY MD in OV>12/11/20 Code(s): R68.81 - Early satiety (3) Nausea and vomiting: Code(s): R11.2 - Nausea with vomiting, unspecified Medications: Refilled omeprazole 40 mg PO DAILY 90 days 90 caps 3RF K21.9 - Gastro-esophageal reflux disease without esophagitis metoclopramide HCl (Reglan) 10 mg PO BID 60 tabs 6RF R11.2 - Nausea with vomiting, unspecified Coding Level of Care Code Est Pt Level 3 (48891) Diagnoses Gastroesophageal reflux disease without esophagitis K21.9 Esophagitis presence: without esophagitis Early satiety R68.81 Nausea and vomiting R11.2
[2023-05-12 09:07] VITALS: BP 111/67; PULSE 94; BMI 25.2
== END 2023-05-12 09:42 | disposition home or self-care (01) ==
PROVIDERS: PCP Internal Medicine; Visit Provider Nurse Practitioner
DX: K21.9 Gastro-esophageal reflux disease without esophagitis (principal); R68.81 Early satiety; R11.2 Nausea with vomiting, unspecified
CPT/HCPCS: 99213

== ENCOUNTER → 2023-05-12 08:48 | Outpatient (BNVA) | payer OTHER, SELFPAY | PROVIDERS: PCP Internal Medicine; Visit Provider Nurse Practitioner | DX: K21.9 Gastro-esophageal reflux disease without esophagitis (principal); R10.13 Epigastric pain; R11.2 Nausea with vomiting, unspecified; R68.81 Early satiety | CPT/HCPCS: 99212 ==

== ENCOUNTER 2023-07-05 08:53 | Outpatient (AMB) | payer OTHER, SELFPAY ==
--- NOTE | 2023-07-05 08:56 | MHC.OFFVIS ---
Intake Vital Signs 07/05/23 08:57 Height 5 ft 2 in Weight 138 lb 7.205 oz BMI 25.3 BP 100/80 Blood Pressure Location Rt brachial Position Sitting Pulse 100 Pulse Source Pulse Oximeter Temp 97 F Temp Source Skin Pulse Oximetry (%) 97 Oxygen Delivery Method Room Air Intake Visit Reasons: Back pain Intake Note: Patient presents today to follow up on back pain. Reports worsening yasmany leg pain and upper back pain. 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 Name: Ann Marie [id number] Information Interpreted: clinical only Accompanied by: Self / Same As Patient Allergies No Known Allergies Allergy (Verified 07/05/23 09:02) Medication List - Last Reconciled 07/05/23 by Mason Vines MD aripiprazole (Abilify) 20 mg PO DAILY baclofen 10 mg PO BID PRN betamethasone dipropionate 0.05% 1 appl topical BID PRN 30 days cholecalciferol (vitamin D3) (Vitamin D3) 25 mcg PO DAILY 90 days clonazepam 0.5 mg PO BEDTIME fluoxetine 80 mg PO DAILY metoclopramide HCl (Reglan) 10 mg PO BID naproxen 500 mg PO BID PRN omeprazole 40 mg PO DAILY 90 days peg 3350-electrolytes 236-22.74-6.74 -5.86 gram (GaviLyte-G) 240 mL PO ONCE zolpidem (Ambien) 10 mg PO BEDTIME PRN HPI HPI Comments History of Present Illness Details Patient returns for evaluation of her osteoarthritis. The visit was facilitated through the [employer] translating service. She was last seen by Barbara about a year ago. She has lower back and now more recent upper back pain. There is also pain in the knees, worse with stairs. She has noticed occasional swelling in the ankles. There is some burning discomfort over her toes. The knee and the back pain seem to be worse with more physical activity. She does not seem to have that much pain at night. She does have difficulty sleeping; she falls asleep fairly easily but then wakes up and has very light and poor sleep the rest of the evening. In the past she was thought to have possibly some fibromyalgia. She remains on fluoxetine, baclofen, Abilify, clonazepam and fluoxetine. She has 500 mg naproxen at home that she takes occasionally. This is helpful but it seems exacerbate her stomach. Recently she was put on some omeprazole and metoclopramide for gastric bloating. [facility] Medical History (Updated 07/05/23 @ 12:08 by Mason Vines MD) DILAN (generalized anxiety disorder) Mild recurrent major depression Left shoulder pain Left elbow pain Fibromyalgia Left shoulder pain Right knee pain Right elbow pain Depression with anxiety Insomnia Lumbar spondylosis Chronic idiopathic constipation Surgical History H/O breast biopsy History of tubal ligation Family History Father Leukemia Cancer Diabetes Mother Arthritis HTN (hypertension) Family/Other Thyroid cancer Diabetes HTN (hypertension) Maternal Grandmother Ovarian cancer Social History Housing: Apartment Alcohol intake: never Patient Tobacco Use Status: Never used Tobacco e-Cigarette/Vaping Use: Never Used Second Hand Smoke Exposure: No service: No Current occupational status: unemployed Cognitive needs: No Hearing needs: No Vision needs: No Female Reproductive History Menstrual Age of Menarche: 10 Review of Systems Const Details: Low energy at times. Negative for appetite change, weight change, fever, chills, malaise Eyes Details: Negative for vision change, dry eyes,headaches and dizziness Card Details: Negative chest pain, edema and syncope Resp Details: Negative for SOB, cough and wheezing GI Details: Some bloating after meals. Negative indigestion/heartburn, nausea, abdominal pain, bowel changes, diarrhea, constipation and bloody stool. Skin/Breast Details: Occasional eczema on the hands. Presently negative for itching, rash, hives, Raynaud's symptoms, sun sensitivity, and skin cancer Neuro Details: Negative for epilepsy, palsy, stroke, changes in speech, tingling and weakness Psych Details: Anxiety depression seem stable with current meds. Endo Details: Negative for polyuria and polydypsia Zach/Lymph Details: Negative for excessive bruising or bleeding. Physical Exam Vital Signs: Last Vital Signs Temp 97 F 07/05/23 08:57 Pulse 100 07/05/23 08:57 BP 100/80 07/05/23 08:57 Pulse Ox 97 07/05/23 08:57 Oxygen Delivery Method Room Air 07/05/23 08:57 BMI result Body Mass Index 25.3 APPEARANCE: Patient in no acute distress EYES no redness, pupils equal and reactive to light, eyelids normal ABD: Normal bowel sounds, no organomegaly, masses or tenderness. EXTREMITIES: No edema, no calf tenderness, normal peripheral pulses. NEURO: Oriented and alert x3. No focal weakness. Reflexes symmetric. Gait normal. SKIN: No inflammatory or neoplastic lesions. Normal color and turgor JOINT EXAM:.?? Cervical Spine:? Full range of motion without pain; no tenderness. Thoracic Spine:? No scoliosis.? Some mild paraspinal muscle tenderness on palpation. Lumbar Spine:? Alignment normal.? Full range of motion with slight discomfort with 60 degrees of flexion. There is some minimal paraspinal muscle tenderness. Negative Geovani's test. occiput to wall test normal. Hands:? Normal pain-free range of motion without tenderness, swelling, increased warmth or erythema. 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 Wrists:? Normal pain-free range of motion without tenderness, swelling, increased warmth or erythema. Elbows: Normal pain-free range of motion without tenderness, swelling, increased warmth or erythema. Shoulders:?? Full range of motion without pain. No tenderness, weakness, swelling, increased warmth or erythema. Hips:? Full range of motion without pain. Hip bursa:? No tenderness. Knees:? Right: Slight pain with full flexion. There is mild patellofemoral crepitus and some minimal medial patellar tenderness and a questionable tiny effusion. No redness or warmth. No popliteal tenderness or swelling. Left: Normal pain-free range of motion with slight patellofemoral crepitus but no effusion, tenderness, swelling, increased warmth or erythema.? Ankles:? Normal pain-free range of motion without tenderness, swelling, increased warmth or erythema. Feet: Normal pain-free range of motion without tenderness, swelling, increased warmth or erythema. Tender points: Mild tenderness to digital palpation at the left, trapezius, right lateral epicondyle ? Results Reviewed Results Reviewed: Laboratory Tests 07/08/22 07/08/22 01/29/23 10:28 10:28 08:32 ESR 14 Creatinine 0.81 C-Reactive Protein 0.[address] [address] XRay Report Signed Patient: Carine Sage MR#: [id number] : 1970 Acct:[id number] Age/Sex: 49 / F ADM Date: 09/23/20 Ordering Physician: Anna Vaughn MD Date of Service: 09/23/20 Procedure(s): XR knee RT 4V Accession Number(s): [id number] cc: Anna Vaughn MD~ EXAMINATION: RIGHT ELBOW, LEFT SHOULDER AND RIGHT KNEE X-RAY CLINICAL INFORMATION: Pain COMPARISON: None TECHNIQUE: 3 views of the right elbow, 4 views of the left shoulder and 4 views of the right knee FINDINGS: Right elbow: Bone alignment is normal. No fracture or dislocation is seen. Joint spaces are normal. Soft tissues are normal. Left shoulder: Bone alignment is normal. No acute fracture or dislocation is seen. There is a cortical irregularity of the superior lateral humeral head questionable for old Hill-Sachs deformity. Joint spaces are normal. Soft tissues are normal. Right knee: Bone alignment is normal. No fracture or dislocation is seen. The joint spaces are normal. There is no joint effusion. XR/XR knee RT 4V IMPRESSION: Normal right elbow and right knee. Left shoulder: Question old Hill-Sachs deformity of the left humeral head.. Dictated By: ANDRAE MARTINEZ MD Signed By: <Electronically signed by ANDRAE MARTINEZ MD in OV> 09/23/20 1055 Assessment & Plan Assessment & Plan (1) Back pain: Code(s): M54.9 - Dorsalgia, unspecified (2) Osteoarthritis of lumbar spine: Code(s): M47.816 - Spondylosis without myelopathy or radiculopathy, lumbar region (3) Chondromalacia patellae, left knee: Code(s): M22.42 - Chondromalacia patellae, left knee (4) Chondromalacia patellae, right knee: Code(s): M22.41 - Chondromalacia patellae, right knee Plan Patient does have multiple areas of pain. I do not see on exam active inflammatory arthritis. Her back pain seem to be worse with physical activity suggesting mechanical or degenerative pathology in right her being HLA B27 positive. Lumbar radiographs have not shown sacroiliitis. 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 She does get some benefit with the naproxen but feels that it does bother her stomach at times. In the past there were some with thought she had fibromyalgia but today she does not have that many widespread pains or tender points. However, I think we could restart her gabapentin which she associates with improvement in her pain and sleep. I gave her the 300 mg capsule that she could take 1 or 2 at night. We talked about physical therapy for the back and the knee pain but she says it did not work before and she does not want to pursue that option. The upper back pain is new so I think we will work that up further with an x-ray. I gave her some written information on osteoarthritis to review in Nepali. that. A follow-up in 6-8 months would be reasonable. Review of her record, today's history, today's exam and review of her x-rays took 34 minutes. Orders: Orders XR thoracic spine 2V Today M54.9 - Dorsalgia, unspecified Medications: New gabapentin 300 - 600 mg (1 - 2 x 300 mg) PO BEDTIME 45 caps 4RF M47.816 - Spondylosis without myelopathy or radiculopathy, lumbar region Coding Level of Care Code Est Pt Level 4 (47381) Diagnoses Back pain M54.9 Osteoarthritis of lumbar spine M47.816 Chondromalacia patellae, left knee M22.42 Chondromalacia patellae, right knee M22.41
[2023-07-05 08:57] VITALS: BP 100/80; PULSE 100; TEMP 36.1; O2SAT 97; BMI 25.3
== END 2023-07-05 09:50 | disposition home or self-care (01) ==
PROVIDERS: PCP Internal Medicine; Visit Provider Internal Medicine Rheumatology
DX: M54.9 Dorsalgia, unspecified (principal); M47.816 Spondylosis without myelopathy or radiculopathy, lumbar region; M22.42 Chondromalacia patellae, left knee; M22.41 Chondromalacia patellae, right knee
CPT/HCPCS: 99214

== ENCOUNTER → 2023-07-05 08:53 | Outpatient (BNVA) | payer OTHER, SELFPAY | PROVIDERS: PCP Internal Medicine; Visit Provider Internal Medicine Rheumatology | DX: M47.816 Spondylosis without myelopathy or radiculopathy, lumbar region (principal); M22.42 Chondromalacia patellae, left knee; M22.41 Chondromalacia patellae, right knee; M54.9 Dorsalgia, unspecified | CPT/HCPCS: 99212 ==

== ENCOUNTER 2023-07-29 07:25 | Outpatient (AMB) | payer OTHER, SELFPAY ==
[2023-07-29 07:32] VITALS: BP 118/80; BMI 24.1
--- NOTE | 2023-07-29 07:32 | MHC.PC.OV ---
Vital Signs 07/29/23 07:32 Height 5 ft 2 in Weight 132 lb BMI 24.1 BP 118/80 Blood Pressure Location Lt brachial Position Sitting Intake Visit Reasons: PHYSICAL Intake Note: Patient here for a physical exam Supervisor White Sugar Required: No Accompanied by: Self / Same As Patient Allergies No Known Allergies Allergy (Verified 07/29/23 07:50) Medication List - Last Reconciled 07/29/23 by Anna Sinha MD aripiprazole (Abilify) 20 mg PO DAILY baclofen 10 mg PO BID PRN betamethasone dipropionate 0.05% 1 appl topical BID PRN 30 days cholecalciferol (vitamin D3) (Vitamin D3) 25 mcg PO DAILY 90 days clonazepam 0.5 mg PO BEDTIME fluoxetine 80 mg PO DAILY gabapentin 300 - 600 mg (1 - 2 x 300 mg) PO BEDTIME metoclopramide HCl (Reglan) 10 mg PO BID naproxen 500 mg PO BID PRN omeprazole 40 mg PO DAILY 90 days zolpidem (Ambien) 10 mg PO BEDTIME PRN Tobacco use date assessed: 11/26/22 Dental Screening Dental Screen Date: 07/29/23 Did you have a dental visit in the last 12 months?: Yes Did you have a dental problem in the last 6 months where you did not have access to dental care?: No Was dental information given to patient?: Patient has dentist HPI HPI Comments History of Present Illness Details This is a 52-year-old female with mild recurrent major depression that comes for her physical exam. Depression stable with medications and has been follow by Psychiatry. Mammogram done 2022 was normal. Pap smear done 2022 was normal with HPV negative. Has not received a call yet for colonoscopy. No chest pain or shortness of breath. Complains of diffuse joint pain and this is evaluated by Rheumatology. [facility] Medical History DILAN (generalized anxiety disorder) Mild recurrent major depression Left shoulder pain Left elbow pain Fibromyalgia Left shoulder pain Right knee pain Right elbow pain Depression with anxiety Insomnia Lumbar spondylosis Chronic idiopathic constipation Surgical History H/O breast biopsy History of tubal ligation Family History Father Leukemia Cancer Diabetes Mother Arthritis HTN (hypertension) Family/Other Thyroid cancer Diabetes HTN (hypertension) Maternal Grandmother Ovarian cancer Social History Housing: Apartment Alcohol intake: never Patient Tobacco Use Status: Never used Tobacco e-Cigarette/Vaping Use: Never Used Second Hand Smoke Exposure: No service: No Current occupational status: unemployed Cognitive needs: No Hearing needs: No Vision needs: No Female Reproductive History Menstrual Age of Menarche: 10 Questionnaire Thrive Questionnaire Date Thrive assessed: 11/26/22 DILAN-7 AMB Questionnaire DILAN-7 Date DILAN - 7 assessed: 11/26/22 Source: Developed by Drs. Servando Gomes, Rach Kaur, Alex Olivera and colleagues, with an educational donya from [employer]. Review of Systems Const All systems reviewed & are unremarkable except as noted in HPI and below Eyes Reports no additional complaints, Denies change in vision and Denies other visual disturbances Card Denies chest pain at rest, Denies chest pain with activity, Denies edema, Denies irregular heart rhythm, Denies claudication, Denies dyspnea, Denies dyspnea on exertion, Denies orthopnea, Denies paroxysmal nocturnal dyspnea and Denies slow heart rate Resp Denies cough, Denies dyspnea and Denies dyspnea on exertion GI Denies abdominal pain, Denies change in bowel habits, Denies excessive flatus, Denies nausea and Denies vomiting Denies urinary incontinence, Denies urinary hesitancy and Denies urinary urgency Musc Denies abnormal gait, Denies atrophy, Denies deformity and Denies limited range of motion Skin/Breast Denies bleeding lesions, Denies changing lesions and Denies rash Neuro Denies abnormal gait, Denies behavioral changes, Denies confusion and Denies lack of coordination Psych Denies behavioral changes and Denies confusion Physical exam (Primary Care) Vital Signs: Last Vital Signs BP 118/80 07/29/23 07:32 BMI result Body Mass Index 24.1 Tobacco/Smoking Status: Tobacco use Status Tobacco use date assessed 11/26/22 07/29/23 07:40 Patient Tobacco Use Status Never used Tobacco 07/29/23 07:40 e-Cigarette/Vaping Use Never Used 07/29/23 07:40 Thrive Assessment: Date of Thrive Assessment Date Thrive assessed 11/26/22 07/29/23 07:40 Const General: No confusion Orientation/consciousness: patient oriented x3 and No confusion HENMT Head: Yes normal to inspection, Yes normocephalic and Yes atraumatic Ears: external ears normal Eyes General: appearance normal, both eyes and all related structures Eyelids: Yes eyelids normal Conjunctivae: conjunctivae normal Neck Neck: Yes normal visual inspection and Yes supple Resp Effort & Inspection: normal respiratory effort Auscultation: clear to auscultation bilaterally Cardio Jugular venous distension: no JVD Rate: regular rate Rhythm: regular rhythm Heart sounds: S1 normal heart sound present and S2 normal heart sound present GI Inspection: Yes normal to inspection Palpation (GI): Soft to palpation and nontender Auscultation: normal bowel sounds Skin General skin exam: no rashes or lesions noted Neuro General: patient oriented x3, no focal motor deficits and No confusion Extrem General: Yes full ROM Psych Appearance: grossly normal Office Procedures Flu Questionnaire Does the patient have a severe egg allergy?: No Immunizations flu vacc [id number] 6mos up(PF) 60 mcg(15 mcgx4)/0.5 mL IM syringe Performing Provider: Anna Sinha MD [facility] Documented (not given) by: ZANE Apodaca on 07/29/23 07:41 Reason Not Given: Patient Refused Assessment and Plan Assessment & Plan (1) Physical exam: Code(s): Z00.00 - Encounter for general adult medical examination without abnormal findings Plan: Repeat in a year. (2) Mild recurrent major depression: Code(s): F33.0 - Major depressive disorder, recurrent, mild Plan: Continue Abilify. Orders: Orders Influenza [id number] Immunization Today Z23 - Encounter for immunization Vitamin B12 and Folate Today E53.8 - Deficiency of other specified B group vitamins Complete Blood Count Auto Diff Today D64.9 - Anemia, unspecified Comprehensive [place]. Panel Fast Today Z00.00 - Encounter for general adult medical examination without abnormal findings Lipid Panel Today Z00.00 - Encounter for general adult medical examination without abnormal findings Vitamin D 25-OH Total Today E55.9 - Vitamin D deficiency, unspecified IRON PROFILE Today D64.9 - Anemia, unspecified Medications: Refilled cholecalciferol (vitamin D3) (Vitamin D3) 25 mcg PO DAILY 90 days 90 tabs 3RF Coding Level of Care Code Est Pt Prev Care 40-64y(93826) Diagnoses Physical exam Z00.00 Mild recurrent major depression F33.0 Time Spent (min) 32
== END 2023-07-29 07:57 | disposition home or self-care (01) ==
PROVIDERS: Visit Provider Internal Medicine
DX: Z00.00 Encounter for general adult medical examination without abnormal findings (principal); F33.0 Major depressive disorder, recurrent, mild; E55.9 Vitamin D deficiency, unspecified
CPT/HCPCS: 99396

== ENCOUNTER 2023-11-08 07:44 | Outpatient (REF) | payer OTHER, SELFPAY ==
--- NOTE | ~2023-11-08 | MM_ITS ---
EXAMINATION: MM SCREENING DIGITAL BREAST TOMOSYNTHESIS, BILATERAL CLINICAL INFORMATION: Screening. Asymptomatic. COMPARISON: Mammography: This study is compared with prior exams dating back to 2019. TECHNIQUE: Digital breast tomosynthesis is performed in both the craniocaudal and mediolateral oblique views along with computer-aided detection (CAD). Synthesized 2D images are generated from the tomosynthesis. FINDINGS: There are scattered areas of fibroglandular density (ACR BI-RADS breast composition Category b). There are no significant masses, abnormal calcifications, or other abnormalities. There is a tissue marker in the superior aspect of the right breast from prior benign percutaneous biopsy. MM/MM tomosynthesis screening BI IMPRESSION: No mammographic evidence of malignancy. ASSESSMENT: BI-RADS BI-RADS 2 - Benign Findings RECOMMENDATION: Routine annual mammography screening. 1 year F/U This examination should not preclude the clinical evaluation of a suspicious palpable abnormality. This patient's information was entered into a reminder system with a target due date for their next mammogram.
== END 2023-11-08 07:45 | disposition home or self-care (01) ==
LOC: HO.MAMMO 07:44
PROVIDERS: PCP Internal Medicine; Visit Provider Internal Medicine
DX: Z12.31 Encounter for screening mammogram for malignant neoplasm of breast (principal)
CPT/HCPCS: 77063; 77067

== ENCOUNTER → 2023-11-08 08:00 | Outpatient (BNV) | payer OTHER, SELFPAY | PROVIDERS: PCP Internal Medicine; Visit Provider Radiology Diagnostic Radiology | DX: Z12.31 Encounter for screening mammogram for malignant neoplasm of breast (principal) | CPT/HCPCS: 77063; 77067 ==

== ENCOUNTER 2023-11-10 07:58 | Outpatient (REF) | payer OTHER, SELFPAY ==
--- NOTE | ~2023-11-10 | XR_ITS ---
EXAMINATION: XR THORACIC SPINE CLINICAL INFORMATION: Dorsalgia. COMPARISON: None available. TECHNIQUE: Frontal, lateral and swimmer's views of the thoracic spine were obtained. FINDINGS: Vertebral body heights are normal. There is a trace thoracic dextroscoliosis, which may be positional. The thoracic disc spaces are well-maintained. No acute fracture or spondylolisthesis is seen. There are no abnormal endplate changes. The posterior elements are intact. The paravertebral soft tissues are unremarkable. XR/XR thoracic spine 2V IMPRESSION: 1. There is a trace thoracic dextroscoliosis, which may be positional. 2. The thoracic disc spaces are well-maintained. 3. No acute fracture or spondylolisthesis is seen.
[2023-11-10 08:31] LABS: MANUAL DIFF FLAG NO
[2023-11-10 09:27] LABS: Basophils Absolute Auto 0.1 X10*3/uL (0.0-0.2); Basophils Percent Auto 0.6 % (0-2); Eosinophils Absolute Auto 0.4 X10*3/uL (0.0-0.4); Eosinophils Percent Auto 3.1 % (0-4); Hematocrit 34.4 % (37.0-47.0); Hemoglobin 11.2 g/dl (12.0-16.0); Imm Gran Abs Auto 0.04 X10*3/uL (0.00-0.03); Imm Gran Pct Auto 0.3 % (0.0-0.4); Lymphocytes Absolute Auto 3.2 X10*3/uL (1.2-4.9); Lymphocytes Percent Auto 27.2 % (20-40); Mean Corpuscular HGB Conc 32.6 g/dl (31.0-35.0); Mean Corpuscular Hemoglobin 26.9 pg (27.0-33.0); Mean Corpuscular Volume 82.5 fL (80.0-98.0); Mean Platelet Volume 9.9 fL (9.4-12.3); Monocytes Absolute Auto 0.8 X10*3/uL (0.1-1.2); Neutrophils Absolute Auto 7.3 x10*3/uL (2.0-8.3); Neutrophils Percent Auto 61.8 % (45-73); Platelet Count 322 X10*3/uL (160-400); Red Blood Count 4.17 X10*6/uL (4.20-5.50); White Blood Count 11.8 X10*3/uL (4.8-10.8)
[2023-11-10 10:15] LABS: Alanine Aminotransferase 15 U/L (0-31); Albumin Level 3.8 g/dL (3.5-5.0); Alkaline Phosphatase 52 U/L (39-117); Anion Gap 11 (12-20); Aspartate Amino Transferase 19 U/L (5-31); Bilirubin Total 0.4 mg/dL (0.0-1.0); Blood Urea Nitrogen 15 mg/dL (9-16); Calcium 8.9 mg/dL (8.4-10.2); Carbon Dioxide 27 mmol/L (22-29); Chloride 105 mmol/L (96-108); Cholesterol 160 mg/dL (<200); Estimated Glomerular Filt Rate > 60; Glucose Fasting 93 mg/dL (60-99); HDL Cholesterol 42 mg/dL (>40); Iron 70 mcg/dL (30-160); LDL Cholesterol Calculated 101 mg/dL (<100); Percent Iron Saturation 29 % (15-50); Sodium 139 mmol/L (135-145); Total Iron Binding Capacity 244 mcg/dL (228-428); Total Protein 7.1 g/dL (6.5-8.0); Triglycerides 89 mg/dL (<150); Unsaturated Iron Binding 174 ug/dL; Vitamin D 25-OH Total 39.1 ng/mL (>30)
[2023-11-10 13:53] LABS: Folate 17.1 ng/mL (> or = 4.0)
[2023-11-10 19:59] LABS: Vitamin B12 495 pg/mL (200-900)
== END 2023-11-10 07:59 | disposition home or self-care (01) ==
LOC: HO.LAB 07:58
PROVIDERS: Absent Provider Internal Medicine Rheumatology; Visit Provider Internal Medicine
DX: Z00.00 Encounter for general adult medical examination without abnormal findings (principal); E53.8 Deficiency of other specified B group vitamins; D64.9 Anemia, unspecified; E55.9 Vitamin D deficiency, unspecified; M54.9 Dorsalgia, unspecified
CPT/HCPCS: 36415; 72070; 80053; 80061; 82306; 82607; 82746; 83540; 85025

== ENCOUNTER 2023-11-16 08:45 | Outpatient (AMB) | payer OTHER, SELFPAY ==
--- NOTE | 2023-11-16 08:56 | A.OFFVIS_ITS ---
Intake Vital Signs 11/16/23 09:20 Height 5 ft 2 in Weight 136 lb BMI 24.9 BP 125/64 Blood Pressure Location Lt brachial Position Sitting Pulse 87 Intake Visit Reasons: 6 month follow up Paresis, GERD Intake Note: Patient follow up GERD Patient cc: abdominal pain with bloating on and off, and acid reflex come and go. Dye Colorist Formulator Required: Yes Dye Colorist Formulator Name: C Interpeter Accompanied by: Self / Same As Patient Allergies No Known Allergies Allergy (Verified 07/29/23 07:50) HPI 6 month follow up Paresis, GERD HPI Details Assessment & Plan (1) GERD (gastroesophageal reflux diseas e): Code(s): K21.9 - Gastro-esophageal reflux disease without esophagitis Qualifiers: Esophagitis presence: without esophagitis Qualified Code(s): K21.9 - Gastro-esophageal reflux disease without esophagitis Plan: CITIZ[place].#Kaylynn Live She has not yet been contacted to schedule the colonoscopy. I send another message to the schedulers. I am not perfect but much better. Continues on reglan w/o s/e. The omeprazole 40mg qd is controlling her GERD. With this she is satisfied with her GI regimen. ROV 6 mos. (2) Early satiety: Comment: GASTRIC EMPTYING STUDY MPRESSION: Probable normal solid food gastric emptying study. Because the patient was not able to ingest fully the standard meal, the measured retention may not reflect gastric emptying following a full meal but the minimal retention noted suggests no significant abnormal retention of solid food is present. Dictated By:ROBERTO CURRY MDSigned By:<Electronically signed by ROBERTO CURRY MD in OV>12/11/20 Code(s): R68.81 - Early satiety (3) Nausea and vomiting: Code(s): R11.2 - Nausea with vomiting, unspecified Medications: Refilled omeprazole 40 mg PO DAILY 90 days 90 caps 3RF K21.9 - Gastro-eso phageal reflux dis ease without esoph agitis metoclopramide HCl (Reglan) 10 mg PO BID 60 t abs 6RF R11.2 - Nausea wit h vomiting, unspec ified in LABS COLONOSCOPY BIOPSY TODAY'S VISIT CIT[place] #Trixie Live She has not heard re: colonoscopy. Her meds continue to help her well. Continues on reglan w/o s/e. The omeprazole 40mg qd is controlling her GERD. With this she is satisfied with her GI regimen. I sent another note to the schedulers regarding her colonoscopy. Return office visit in 6 months [facility] Medical History DILAN (generalized anxiety disorder) Mild recurrent major depression Left shoulder pain Left elbow pain Fibromyalgia Left shoulder pain Right knee pain Right elbow pain Depression with anxiety Insomnia Lumbar spondylosis Chronic idiopathic constipation Surgical History H/O breast biopsy History of tubal ligation Family History Father Leukemia Cancer Diabetes Mother Arthritis HTN (hypertension) Family/Other Thyroid cancer Diabetes HTN (hypertension) Maternal Grandmother Ovarian cancer Social History Housing: Apartment Alcohol intake: never Patient Tobacco Use Status: Never used Tobacco e-Cigarette/Vaping Use: Never Used Second Hand Smoke Exposure: No service: No Current occupational status: unemployed Cognitive needs: No Hearing needs: No Vision needs: No Female Reproductive History Menstrual Age of Menarche: 10 Review of Systems Const Denies fatigue, Denies fever(s), Denies night sweats, Denies poor appetite and Denies weight loss ENT Reports Normal hearing present, Denies dental pain, Denies dysphagia, Denies hearing loss, Denies mouth pain, Denies odynophagia, Denies throat swelling, Denies tongue swelling and Reports other (Dentition adequate) Card Reports no additional complaints Resp Reports no additional complaints GI Details: Denies abdominal pain, Denies melena, Denies bloating, Denies hematochezia, Denies constipation, Denies GI cramping, Denies dysphagia, Denies excessive flatus, Reports early satiety, Reports heartburn, Denies diarrhea, Denies nausea, Denies odynophagia, Denies vomiting and Denies hematemesis Skin/Breast Denies pruritus, Denies lesions, Denies rash and Denies jaundice Neuro Reports Normal hearing present and Denies Abnormal speech present Endo Denies fatigue Aller/Immun Denies throat swelling and Denies tongue swelling Physical Exam Vital Signs: Last Vital Signs Pulse 87 11/16/23 09:20 BP 125/64 11/16/23 09:20 BMI result Body Mass Index 24.9 Const General: cooperative, no acute distress, well developed and well groomed Nutritional Appearance: average body habitus and well nourished Orientation/consciousness: oriented to person, oriented to place and oriented to time Limitations: language barrier HEENT Head: Yes normocephalic and Yes atraumatic Eyes General: appearance normal, both eyes and all related structures Pupils: Equal, round and reactive pupils present Neck Neck: Yes normal visual inspection and Yes no lymphadenopathy Thyroid: Thyroid normal Resp Effort & Inspection: normal respiratory effort and able to speak in complete sentences Auscultation: clear to auscultation bilaterally Cardio Rate: regular rate Rhythm: regular rhythm Heart sounds: Normal, physiologic split S2 sound present Peripheral pulses: radial pulses present and posterior tibial pulses present GI Inspection: No distended and No Abdominal panniculus present Palpation (GI): Soft to palpation, nontender, no guarding, not rigid and No hepatosplenomegaly present Percussion: Yes normal to percussion Auscultation: normal bowel sounds Rectal Exam - Female: deferred Skin General skin exam: no rashes or lesions noted, turgor normal, skin not dry, no jaundice, No spider nevi and no striae Rashes: no rashes Nails: normal Neuro General: oriented to person, oriented to place and oriented to time Cranial nerves: Yes Equal, round and reactive pupils present and Yes Normal hearing present Speech: No Abnormal speech present Extrem General: Yes normal to inspection, No clubbing, No cyanosis and No edema Psych Appearance: grossly normal and well kempt Mental Status: mental status grossly normal Speech and movement: Normal speech and movement present Affect: normal affect Attitude: cooperative Thought process: Normal thought process present and not confabulating Thought content: Normal thought content present Insight: Limited insight present (Psych) Judgement: Limited judgement present (Psych) Assessment & Plan Assessment & Plan (1) GERD (gastroesophageal reflux disease): Code(s): K21.9 - Gastro-esophageal reflux disease without esophagitis Qualifiers: Esophagitis presence: without esophagitis Qualified Code(s): K21.9 - Gastro-esophageal reflux disease without esophagitis (2) Early satiety: Comment: GASTRIC EMPTYING STUDY MPRESSION: Probable normal solid food gastric emptying study. Because the patient was not able to ingest fully the standard meal, the measured retention may not reflect gastric emptying following a full meal but the minimal retention noted suggests no significant abnormal retention of solid food is present. Dictated By:ROBERTO CURRY MDSigned By:<Electronically signed by ROBERTO CURRY MD in OV>12/11/20 Code(s): R68.81 - Early satiety (3) Epigastric pain: Code(s): R10.13 - Epigastric pain (4) Screening for colon cancer: Code(s): Z12.11 - Encounter for screening for malignant neoplasm of colon Plan [place] #Trixie Live She has not heard re: colonoscopy. Her meds continue to help her well. Continues on reglan w/o s/e. The omeprazole 40mg qd is controlling her GERD. With this she is satisfied with her GI regimen. I sent another note to the schedulers regarding her colonoscopy. Return office visit in 6 months COLONOSCOPY BIOPSY Orders: Orders Colonoscopy - GI Use Only 11/16/23 Z12.11 - Encounter for screening for malignant neoplasm of colon Medications: Refilled omeprazole 40 mg PO DAILY 90 caps 6RF 90 days K21.9 - Gastro-esophageal reflux disease without esophagitis metoclopramide HCl (Reglan) 10 mg PO BID 60 tabs 6RF R11.2 - Nausea with vomiting, unspecified Coding Level of Care Code Est Pt Level 3 (01642) Diagnoses Gastroesophageal reflux disease without esophagitis K21.9 Esophagitis presence: without esophagitis Early satiety R68.81 Epigastric pain R10.13 Screening for colon cancer Z12.11
[2023-11-16 09:20] VITALS: BP 125/64; PULSE 87; BMI 24.9
== END 2023-11-16 09:37 | disposition home or self-care (01) ==
PROVIDERS: PCP Internal Medicine; Visit Provider Nurse Practitioner
DX: K21.9 Gastro-esophageal reflux disease without esophagitis (principal); R68.81 Early satiety; R10.13 Epigastric pain; Z12.11 Encounter for screening for malignant neoplasm of colon
CPT/HCPCS: 99213

== ENCOUNTER → 2023-11-16 08:45 | Outpatient (BNVA) | payer OTHER, SELFPAY | PROVIDERS: PCP Internal Medicine; Visit Provider Nurse Practitioner | DX: Z12.11 Encounter for screening for malignant neoplasm of colon (principal); K21.9 Gastro-esophageal reflux disease without esophagitis; R68.81 Early satiety; R10.13 Epigastric pain | CPT/HCPCS: 99212 ==

== ENCOUNTER 2023-12-06 08:54 | Outpatient (AMB) | payer OTHER, SELFPAY ==
[2023-12-06 09:02] VITALS: BP 100/64; BMI 24.6
--- NOTE | 2023-12-06 09:02 | A.OFFVIS_ITS ---
Vital Signs 12/06/23 09:02 Height 5 ft 2 in Weight 134 lb 7.712 oz BMI 24.6 BP 100/64 Intake Visit Reasons: MEDICAL RECORDS ASSISTANT annual exam Intake Note: no concerns Dozer Operator Required: Yes Dozer Operator Language: Supervisory Air Intercept Controller Name: Pura DEGROOT Information Interpreted: non-clinical & clinical Passenger Agent: Passenger Agent Present (Pura DEGROOT) Accompanied by: Self / Same As Patient Allergies No Known Allergies Allergy (Verified 12/06/23 09:05) Post menopausal: Yes HPI Comments Details: Presenting for annual exam. No complaints. Last Pap/HPV was negative in 12/22 Last Mammogram was BI-RADS 2 in 11/23 No previous screening Colonoscopy PFS Medical History DILAN (generalized anxiety disorder) Mild recurrent major depression Left shoulder pain Left elbow pain Fibromyalgia Left shoulder pain Right knee pain Right elbow pain Depression with anxiety Insomnia Lumbar spondylosis Chronic idiopathic constipation Surgical History H/O breast biopsy History of tubal ligation Family History Father Leukemia Cancer Diabetes Mother Arthritis HTN (hypertension) Family/Other Thyroid cancer Diabetes HTN (hypertension) Maternal Grandmother Ovarian cancer Social History Housing: Apartment Alcohol intake: never Patient Tobacco Use Status: Never used Tobacco e-Cigarette/Vaping Use: Never Used Second Hand Smoke Exposure: No service: No Current occupational status: unemployed Cognitive needs: No Hearing needs: No Vision needs: No Female Reproductive History Menstrual Age of Menarche: 10 control method: permanent sterilization Menopause type: surgical Total pregnancies: 3 Full term: 3 Number of Living Children: 3 Date of last pap smear: 12/03/22 Date of Mammogram: 11/08/23 Review of Systems Const All systems reviewed & are unremarkable except as noted in HPI and below Card Reports as per HPI Resp Reports as per HPI GI Reports as per HPI and Reports no additional complaints Reports as per HPI Physical Exam Vital Signs: Last Vital Signs BP 100/64 12/06/23 09:02 BMI result Body Mass Index 24.6 Const General: cooperative, healthy appearing and comfortable Chest Chest palpation & inspection: normal inspection of the chest and normal palpation of entire chest wall Breast/axilla inspection: normal inspection of the breasts and normal inspection of the axillae Breast/axilla palpation: normal palpation of the breasts, normal palpation of the axillae and no axillary lymphadenopathy Resp Effort & Inspection: normal respiratory effort Auscultation: clear to auscultation bilaterally Percussion: percussion normal Cardio Palpation: normal PMI Rate: regular rate Rhythm: regular rhythm Heart sounds: no murmurs and no rubs Peripheral pulses: Peripheral pulses 2+ throughout GI Inspection: Yes normal to inspection Palpation (GI): Soft to palpation, nontender, no guarding, not rigid and No hepatosplenomegaly present Percussion: Yes normal to percussion Auscultation: normal bowel sounds Rectal Exam - Female: deferred General: Yes bladder normal to palpation External Female Exam: No lesion Speculum Exam - Vagina: normal appearance of the vagina, normal palpation, normal vaginal discharge and not erythematous Speculum Exam - Cervix: normal appearance of the cervix and normal palpation Bimanual exam- vagina & uterus: normal bimanual exam, normal palpation, uterine size normal, bladder normal to palpation, consistency normal and normal palpation Bimanual Exam- Adnexa, other: normal adnexae, no masses and no tenderness Assessment & Plan Assessment & Plan (1) Well woman exam: Code(s): Z01.419 - Encounter for gynecological examination (general) (routine) without abnormal findings Category: Medical Plan: Co testing not indicated this year. Counseled the patient about the recommended dietary allowance of 1200 mg of Calcium & 600 IU of vitamin D. Instructions given to patient to schedule next screening Mammogram in 11/24. The patient was referred to GI for screening colonoscopy . Instructed the patient to call our office back in case a referral appointment is not scheduled, missed or canceled so that we will assist on rescheduling another appointment, the patient verbalized understanding agreed with the plan. The patient was instructed to perform monthly self-breast exams and schedule annual exam in a year. All questions answered and the patient verbalized understanding. Orders: Referrals Gastroenterology Referral Z12.11 - Encounter for screening for malignant neoplasm of colon Coding Level of Care Code Est Pt Prev Care 40-64y(58291) Diagnoses Well woman exam Z01.419
== END 2023-12-06 09:31 | disposition home or self-care (01) ==
PROVIDERS: Visit Provider Obstetrics & Gynecology
DX: Z01.419 Encounter for gynecological examination (general) (routine) without abnormal findings (principal)
CPT/HCPCS: 99396

== ENCOUNTER → 2023-12-06 08:54 | Outpatient (BNVA) | payer OTHER, SELFPAY | PROVIDERS: Visit Provider Obstetrics & Gynecology | DX: Z01.419 Encounter for gynecological examination (general) (routine) without abnormal findings (principal) | CPT/HCPCS: 99396 ==

== ENCOUNTER 2024-01-06 13:45 | Outpatient (AMB) | payer OTHER, SELFPAY ==
--- NOTE | 2024-01-06 13:47 | A.OFFVIS_ITS ---
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 c/o pain on all toes for a few months. States pain on right foot radiates up the leg. Air Traffic Instructor Required: Yes Air Traffic Instructor Language: Assurance Engineer Name: [id number] Information Interpreted: clinical only Allergies No Known Allergies Allergy (Verified 01/06/24 13:48) HPI Comments Details: Ms. Sage 53 yoF returns for follow-up of her osteoarthritis. The visit was facilitated through the [employer] translating service. Her complains remains much the same as last visit (See below). Naproxen calms the pain for two to three hours. She says she was told she has fibromyalgia. She remains on fluoxetine, baclofen, Abilify, and clonazepam. Occasionally she takes 500 mg naproxen. This is helpful but it can bother her stomach. She still takes omeprazole and meto clopramide for gastric bloating. 07/2023: Dr. Vines Patient returns for evaluation of her osteoarthritis. The visit was facilitated through the [employer] translating service. She was last seen by Barbara about a year ago. She has lower back and now more recent upper back pain. There is also pain in the knees, worse with stairs. She has noticed occasional swelling in the ankles. There is some burning discomfort over her toes. The knee and the back pain seem to be worse with more physical activity. She does not seem to have that much pain at night. She does have difficulty sleeping; she falls asleep fairly easily but then wakes up and has very light and poor sleep the rest of the evening. In the past she was thought to have possibly some fibromyalgia. She remains on fluoxetine, baclofen, Abilify, clonazepam and fluoxetine. She has 500 mg naproxen at home that she takes occasionally. This is helpful but it seems exacerbate her stomach. Recently she was put on some omeprazole and metoclopramide for gastric bloating. [facility] Medical History (Updated 01/21/24 @ 12:30 by Radha Maximino, CHIEF LIBRARIAN MUSIC DEPARTMENT-BC) Lumbar back pain with radiculopathy affecting left lower extremity Bilateral sciatica Leg cramps DILAN (generalized anxiety disorder) Mild recurrent major depression Left shoulder pain Left elbow pain Fibromyalgia Left shoulder pain Right knee pain Right elbow pain Depression with anxiety Insomnia Lumbar spondylosis Chronic idiopathic constipation Surgical History H/O breast biopsy History of tubal ligation Family History Father Leukemia Cancer Diabetes Mother Arthritis HTN (hypertension) Family/Other Thyroid cancer Diabetes HTN (hypertension) Maternal Grandmother Ovarian cancer Social History Housing: Apartment Alcohol intake: never Patient Tobacco Use Status: Never used Tobacco e-Cigarette/Vaping Use: Never Used Second Hand Smoke Exposure: No service: No Current occupational status: unemployed Cognitive needs: No Hearing needs: No Vision needs: No Female Reproductive History Menstrual Age of Menarche: 10 Review of Systems Const All systems reviewed & are unremarkable except as noted in HPI and below Physical Exam Vital Signs: Last Vital Signs Pulse 103 H 01/06/24 13:57 BP 126/70 01/06/24 13:57 Pulse Ox 97 01/06/24 13:57 BMI result Body Mass Index 25.5 APPEARANCE: Patient in no acute distress EYES no redness, eyelids normal HEART:? Regular rhythm, S1-S2 heard, no murmurs, rubs or gallops. LUNG:? Clear to percussion and auscultation EXTREMITIES: No edema, no calf tenderness, normal peripheral pulses. NEURO: Oriented and alert x3. No focal weakness. Reflexes symmetric. Gait normal. SKIN: No inflammatory or neoplastic lesions. Normal color and turgor JOINT EXAM:.?? Cervical Spine:? Full range of motion without pain; no tenderness. Thoracic Spine:? No scoliosis.? Some mild paraspinal muscle tenderness on palpation. Lumbar Spine:? Alignment normal.? Full range of motion with slight discomfort with 60 degrees of flexion. There is some minimal paraspinal muscle tenderness. Negative Geovani's test. occiput to wall test normal. Hands:? Normal pain-free range of motion without tenderness, swelling, increased warmth or erythema. 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 Wrists:? Normal pain-free range of motion without tenderness, swelling, increased warmth or erythema. Elbows: Normal pain-free range of motion without tenderness, swelling, increased warmth or erythema. Shoulders:?? Full range of motion without pain. No tenderness, weakness, swelling, increased warmth or erythema. Hips:? Full range of motion without pain. Hip bursa:? No tenderness. Knees:? Right: Slight pain with full flexion. There is mild patellofemoral crepitus and some minimal medial patellar tenderness and a questionable tiny effusion. No redness or warmth. No popliteal tenderness or swelling. Left: Normal pain-free range of motion with slight patellofemoral crepitus but no effusion, tenderness, swelling, increased warmth or erythema.? Ankles:? Normal pain-free range of motion without tenderness, swelling, increased warmth or erythema. Feet: Normal pain-free range of motion without tenderness, swelling, increased warmth or erythema. Tender points: Mild tenderness to digital palpation at the left, trapezius, right lateral epicondyle ? Results Reviewed Results Reviewed: Laboratory Tests 07/08/22 07/08/22 01/29/23 10:28 10:28 08:32 ESR 14 Creatinine 0.81 C-Reactive Protein 0.32 [place] [id number] XRay Report Signed Patient: Carine Sage MR#: [id number] : 1970 Acct:[id number] Age/Sex: 49 / F ADM Date: 09/23/20 Ordering Physician: Anna Vaughn MD Date of Service: 09/23/20 Procedure(s): XR knee RT 4V Accession Number(s): [id number] cc: Anna Vaughn MD~ EXAMINATION: RIGHT ELBOW, LEFT SHOULDER AND RIGHT KNEE X-RAY CLINICAL INFORMATION: Pain COMPARISON: None TECHNIQUE: 3 views of the right elbow, 4 views of the left shoulder and 4 views of the right knee FINDINGS: Right elbow: Bone alignment is normal. No fracture or dislocation is seen. Joint spaces are normal. Soft tissues are normal. Left shoulder: Bone alignment is normal. No acute fracture or dislocation is seen. There is a cortical irregularity of the superior lateral humeral head questionable for old Hill-Sachs deformity. Joint spaces are normal. Soft tissues are normal. Right knee: Bone alignment is normal. No fracture or dislocation is seen. The joint spaces are normal. There is no joint effusion. XR/XR knee RT 4V IMPRESSION: Normal right elbow and right knee. Left shoulder: Question old Hill-Sachs deformity of the left humeral head.. Dictated By: ANDRAE MARTINEZ MD Signed By: <Electronically signed by ANDRAE MARTINEZ MD in OV> 2016 HLA-B27+ Assessment & Plan Assessment & Plan (1) Leg cramps: Code(s): R25.2 - Cramp and spasm Category: Medical (2) Bilateral sciatica: Code(s): M54.31 - Sciatica, right side; M54.32 - Sciatica, left side Category: Medical (3) HLA B27 (HLA B27 positive): Comment: 2014 Code(s): Z15.89 - Genetic susceptibility to other disease Category: Medical (4) Lumbar back pain with radiculopathy affecting left lower extremity: Code(s): M54.16 - Radiculopathy, lumbar region Category: Medical Plan #+HLA-B27/Lumber back pain/OA: Despite lower back pain, there is no history of her being treated for . She will consider trying treatment after she sees pain management and see if they can help first. I gave her a referral to pain management. 2016 labs +HLA-B27. #Leg Cramps: What patient describes appear to be leg cramps and or sciatic that travel from her feet up to her back on both sides right greater than left. She is bothered when walking and and also is awoken by the pain. I recommended magnesium. If that does not help, will give a referral to pain management for evaluation and if injection can be given. She does to want to consider PT at this time. RTC/6months - sufficient time for her to do pain management and assess if she wants to follow-up with treatment. 07/05/2023 Dr. Vines: Patient does have multiple areas of pain. I do not see on exam active inflammatory arthritis. Her back pain seem to be worse with physical activity suggesting mechanical or degenerative pathology in right her being HLA B27 positive. Lumbar radiographs have not shown sacroiliitis. 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 She does get some benefit with the naproxen but feels that it does bother her stomach at times. In the past there were some with thought she had fibromyalgia but today she does not have that many widespread pains or tender points. However, I think we could restart her gabapentin which she associates with improvement in her pain and sleep. I gave her the 300 mg capsule that she could take 1 or 2 at night. We talked about physical therapy for the back and the knee pain but she says it did not work before and she does not want to pursue that option. The upper back pain is new so I think we will work that up further with an x-ray. I gave her some written information on osteoarthritis to review in Slovenian. that. A follow-up in 6-8 months would be reasonable. Review of her record, today's history, today's exam and review of her x-rays took 34 minutes. Orders: Referrals Pain Management Referral M47.26 - Other spondylosis with radiculopathy, lumbar region, M54.42 - Lumbago with sciatica, left side, M54.41 - Lumbago with sciatica, right side, G89.29 - Other chronic pain, M54.31 - Sciatica, right side, M54.32 - Sciatica, left side, R25.2 - Cramp and spasm Medications: New magnesium 250 mg PO DAILY 60 tabs 0RF R25.2 - Cramp and spasm Coding Level of Care Code Est Pt Level 3 (08573) Complex EM visit Add On G2211 Diagnoses Leg cramps R25.2 Bilateral sciatica M54.31; M54.32 HLA B27 (HLA B27 positive) Z15.89 Lumbar back pain with radiculopathy affecting left lower extremity M54.16
[2024-01-06 13:57] VITALS: BP 126/70; PULSE 103; O2SAT 97; BMI 25.5
== END 2024-01-06 14:58 | disposition home or self-care (01) ==
PROVIDERS: PCP Internal Medicine; Visit Provider Nurse Practitioner Family
DX: R25.2 Cramp and spasm (principal); M54.31 Sciatica, right side; M54.32 Sciatica, left side; Z15.89 Genetic susceptibility to other disease; M54.16 Radiculopathy, lumbar region
CPT/HCPCS: 99213; G2211

== ENCOUNTER → 2024-01-06 13:45 | Outpatient (BNVA) | payer OTHER, SELFPAY | PROVIDERS: PCP Internal Medicine; Visit Provider Nurse Practitioner Family | DX: M54.16 Radiculopathy, lumbar region (principal); M54.31 Sciatica, right side; M54.32 Sciatica, left side; R25.2 Cramp and spasm; Z15.89 Genetic susceptibility to other disease | CPT/HCPCS: 99212 ==

== ENCOUNTER 2024-01-31 07:48 | Outpatient (AMB) | payer OTHER, SELFPAY ==
[2024-01-31 07:53] VITALS: BP 112/62; PULSE 71; O2SAT 97; BMI 24.9
--- NOTE | 2024-01-31 07:53 | MHC.PC.OV ---
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: No Accompanied by: Self / Same As Patient Allergies No Known Allergies Allergy (Verified 01/31/24 08:06) Medication List - Last Reconciled 01/31/24 by Anna Sinha MD aripiprazole (Abilify) 20 mg PO DAILY baclofen 10 mg PO BID PRN betamethasone dipropionate 0.05% 1 appl topical BID PRN 30 days cholecalciferol (vitamin D3) (Vitamin D3) 25 mcg PO DAILY 90 days clonazepam 0.5 mg PO BEDTIME fluoxetine 80 mg PO DAILY gabapentin 300 - 600 mg (1 - 2 x 300 mg) PO BEDTIME magnesium 250 mg PO DAILY metoclopramide HCl (Reglan) 10 mg PO BID naproxen 500 mg PO BID PRN omeprazole 40 mg PO DAILY 90 days zolpidem (Ambien) 10 mg PO BEDTIME PRN Tobacco use date assessed: 01/31/24 Dental Screening Dental Screen Date: 01/31/24 Did you have a dental visit in the last 12 months?: No Did you have a dental problem in the last 6 months where you did not have access to dental care?: No Was dental information given to patient?: No HPI HPI Comments History of Present Illness Details This is a 53-year-old female with mild recurrent major depression, anxiety, lumbar spine osteoarthritis and GERD that comes today for follow-up on her conditions. Depression with anxiety are follow by Psychiatry and has been stable with medications. GERD stable with PPIs. She still complains of low back pain and is aware of her x-ray results from October. She follows with Rheumatology. Positive for HLA B27 regarding ankylosing spondylitis. Was referred to pain management but has not received a call yet. [facility] Medical History Lumbar back pain with radiculopathy affecting left lower extremity Bilateral sciatica Leg cramps DILAN (generalized anxiety disorder) Mild recurrent major depression Left shoulder pain Left elbow pain Fibromyalgia Left shoulder pain Right knee pain Right elbow pain Depression with anxiety Insomnia Lumbar spondylosis Chronic idiopathic constipation Surgical History H/O breast biopsy History of tubal ligation Family History Father Leukemia Cancer Diabetes Mother Arthritis HTN (hypertension) Family/Other Thyroid cancer Diabetes HTN (hypertension) Maternal Grandmother Ovarian cancer Social History Housing: Apartment Alcohol intake: never Patient Tobacco Use Status: Never used Tobacco e-Cigarette/Vaping Use: Never Used Second Hand Smoke Exposure: No service: No Current occupational status: unemployed Cognitive needs: No Hearing needs: No Vision needs: Yes Female Reproductive History Menstrual Age of Menarche: 10 Questionnaire PHQ-9 Over the last 2 weeks, how often have you been bothered by any of the following problems? 1. Little interest or pleasure in doing things: several days 2. Feeling down, depressed, or hopeless: more than half the days 3. Trouble falling or staying asleep, or sleeping too much: several days 4. Feeling tired or having little energy: several days 5. Poor appetite or overeating: several days 6. Feeling bad about yourself - or that you are a failure or have let yourself or your family down: several days 7. Trouble concentrating on things, such as reading the newspaper or watching television: several days 8. Moving or speaking so slowly that other people could have noticed. Or the opposite - being so fidgety or restless that you have been moving around a lot more than usual: several days 9. Thoughts that you would be better off or of hurting yourself in some way: not at all Total score: 9 Depression Screening Interpretation: Positive Depression Screening Follow-up: Existing condition, In treatment, Community Mental Health Worker F/U and Follow-up Visit Requested Depression Screening Done: Yes 85609 - PHQ-9 Billing: Yes Source: Developed by Drs. Servando Gomes, Rach Kaur, Alex Olivera and colleagues, with an educational donya from [employer]. Thrive Questionnaire Date Thrive assessed: 01/31/24 I am a: Patient What is your living situation today?: I have a steady place to live Within the past 12 months, did the food you bought not last and you didn't have the money to get more?: Never true Within the past 12 months, did you worry whether your food would run out before you got money to buy more?: Never true Do you have trouble paying for medicines?: No Do you have trouble getting transportation to medical appointments?: No Do you have trouble paying your heating and electricity bill?: No Do you have trouble taking care of your child, family member or friend?: No Do you have trouble with day-to-day activities such as bathing, preparing meals, shopping, managing finances, etc.?: No Are you currently unemployed and looking for a job?: No Are you interested in more education?: No Currently or been in a relationship where the following occur: No concerns reported THRIVE Score: 0 AUDIT C Alcohol Use Questionnaire (AUDIT-C) 1. How often do you have a drink containing alcohol?: Never Total Score: 0 Score Reviewed/Action Taken: No DILAN-7 AMB Questionnaire DILAN-7 Date DILAN - 7 assessed: 01/31/24 Feeling nervous, anxious, or on edge: 1 = Several days Not being able to stop or control worryin = Several days Worrying too much about different things: 1 = Several days Trouble relaxin = Several days Being so restless that it is hard to sit still: 1 = Several days Becoming easily annoyed or irritable: 1 = Several days Feeling afraid as if something awful might happen: 1 = Several days Total DILAN-7 score (0-4 normal; 5-9 mild; 10-14 moderate; 15-21 severe): 7 Source: Developed by Drs. Servando Gomes, Rach Kaur, Alex Olivera and colleagues, with an educational donya from [employer]. DILAN-7 Assessment Billing DILAN-7 Assessment Tool: DILAN-7 Assessment 82095 Review of Systems Const All systems reviewed & are unremarkable except as noted in HPI and below Card Denies chest pain at rest, Denies chest pain with activity, Denies edema, Denies irregular heart rhythm, Denies claudication, Denies dyspnea, Denies dyspnea on exertion, Denies orthopnea, Denies paroxysmal nocturnal dyspnea and Denies slow heart rate Resp Denies cough, Denies dyspnea and Denies dyspnea on exertion Physical exam (Primary Care) Vital Signs: Last Vital Signs Pulse 71 01/31/24 07:53 BP 112/62 01/31/24 07:53 Pulse Ox 97 01/31/24 07:53 Oxygen Delivery Method Room Air 01/31/24 07:53 BMI result Body Mass Index 24.9 Tobacco/Smoking Status: Tobacco use Status Tobacco use date assessed 01/31/24 01/31/24 07:58 Patient Tobacco Use Status Never used Tobacco 01/31/24 07:58 e-Cigarette/Vaping Use Never Used 01/31/24 07:58 PHQ-9: PHQ-9 Score PHQ-9: Total score 9 01/31/24 07:58 Depression Screening Interpretation: Positive Depression Screening Follow-up: Existing condition, In treatment, Community Mental Health Worker F/U and Follow-up Visit Requested Thrive Assessment: Date of Thrive Assessment Date Thrive assessed 01/31/24 01/31/24 07:58 Currently or been in a relationship where the following occur: No concerns reported Resp Effort & Inspection: normal respiratory effort Auscultation: clear to auscultation bilaterally Cardio Jugular venous distension: no JVD Rate: regular rate Rhythm: regular rhythm Heart sounds: S1 normal heart sound present and S2 normal heart sound present Extrem General: Yes full ROM Assessment and Plan Assessment & Plan (1) Mild recurrent major depression: Code(s): F33.0 - Major depressive disorder, recurrent, mild Plan: Continue Abilify and fluoxetine. Follow-up visit requested for Behavioral Health. (2) GERD (gastroesophageal reflux disease): Code(s): K21.9 - Gastro-esophageal reflux disease without esophagitis Qualifiers: Esophagitis presence: without esophagitis Qualified Code(s): K21.9 - Gastro-esophageal reflux disease without esophagitis Plan: Continue PPIs. (3) DILAN (generalized anxiety disorder): Code(s): F41.1 - Generalized anxiety disorder Plan: Continue clonazepam as needed. Follow-up with psychiatry. (4) Osteoarthritis of lumbar spine: Code(s): M47.816 - Spondylosis without myelopathy or radiculopathy, lumbar region Qualifiers: Spinal osteoarthritis complication: with radiculopathy Qualified Code(s): M47.26 - Other spondylosis with radiculopathy, lumbar region Plan: Follow-up with pain management and Rheumatology. Orders: Orders Complete Blood Count Auto Diff 5 Months D64.9 - Anemia, unspecified IRON PROFILE 5 Months D64.9 - Anemia, unspecified Vitamin D 25-OH Total 5 Months E55.9 - Vitamin D deficiency, unspecified Vitamin B12 and Folate 5 Months E53.8 - Deficiency of other specified B group vitamins Lipid Panel 5 Months E78.5 - Hyperlipidemia, unspecified Magnesium 5 Months R25.2 - Cramp and spasm Comprehensive [place]. Panel Fast 5 Months R25.2 - Cramp and spasm Coding Level of Care Code Est Pt Level 4 (92075) Complex EM visit Add On G2211 Diagnoses Mild recurrent major depression F33.0 Gastroesophageal reflux disease without esophagitis K21.9 Esophagitis presence: without esophagitis DILAN (generalized anxiety disorder) F41.1 Osteoarthritis of spine with radiculopathy, lumbar region M47.26 Spinal osteoarthritis complication: with radiculopathy Additional Codes DILAN-7 Assessment Billing - DILAN-7 Assessment Tool: DILAN-7 Assessment 12114 ([id number]) Time Spent (min) 21
== END 2024-01-31 08:18 | disposition home or self-care (01) ==
PROVIDERS: PCP Internal Medicine; Visit Provider Internal Medicine
DX: F33.0 Major depressive disorder, recurrent, mild (principal); K21.9 Gastro-esophageal reflux disease without esophagitis; F41.1 Generalized anxiety disorder; M47.26 Other spondylosis with radiculopathy, lumbar region
CPT/HCPCS: 99214; G2211

== ENCOUNTER 2024-03-09 08:03 | Outpatient (AMB) | payer OTHER, SELFPAY ==
--- NOTE | 2024-03-09 08:10 | A.OFFVIS_ITS ---
Vital Signs 03/09/24 08:14 Height 5 ft 2 in Weight 136 lb 14.513 oz BMI 25.0 BP 112/64 Blood Pressure Location Rt brachial Position Sitting Pulse 85 Pulse Source Pulse Oximeter Pulse Oximetry (%) 100 Oxygen Delivery Method Room Air Intake Visit Reasons: OA Intake Note: Patient presents for OA. Hand Buffer Required: Yes Hand Buffer Services: Hand Buffer Present Hand Buffer Name: Milton Brink [id number] Information Interpreted: non-clinical & clinical Allergies No Known Allergies Allergy (Verified 03/09/24 08:14) Medication List - Last Reconciled 03/09/24 by Kolby Stevens MD aripiprazole (Abilify) 20 mg PO DAILY baclofen 10 mg PO BID PRN betamethasone dipropionate 0.05% 1 appl topical BID PRN 30 days cholecalciferol (vitamin D3) (Vitamin D3) 25 mcg PO DAILY 90 days clonazepam 0.5 mg PO BEDTIME fluoxetine 80 mg PO DAILY gabapentin 300 - 600 mg (1 - 2 x 300 mg) PO BEDTIME magnesium 250 mg PO DAILY metoclopramide HCl (Reglan) 10 mg PO BID naproxen 500 mg PO BID PRN omeprazole 40 mg PO DAILY 90 days zolpidem (Ambien) 10 mg PO BEDTIME PRN HPI Comments Details: This is a 53-year-old female with positive HLA B27 who presents for follow-up. She was recently evaluated by Dr. Vines and deemed not to have an inflammatory arthritis. She was treated as lumbar osteoarthritis and fibromyalgia. Patient states that she has 0 back pain that radiates across her entire back. Intermittent buttock pain. Gets intermittent pain in her feet. She has morning stiffness of her back most days that lasts for a few hours, improved with moving around and taking naproxen 500 mg, s she sometimes takes another 500 mg at night as well. She also takes gabapentin but states that naproxen is much more helpful. She denies any swollen joints. She denies any history suggestive of uveitis or colitis. Denies history of psoriasis. She is unaware of any family history of an autoimmune rheumatic disease. [facility] Medical History Lumbar back pain with radiculopathy affecting left lower extremity Bilateral sciatica Leg cramps DILAN (generalized anxiety disorder) Mild recurrent major depression Left shoulder pain Left elbow pain Fibromyalgia Left shoulder pain Right knee pain Right elbow pain Depression with anxiety Insomnia Lumbar spondylosis Chronic idiopathic constipation Surgical History H/O breast biopsy History of tubal ligation Family History Father Leukemia Cancer Diabetes Mother Arthritis HTN (hypertension) Family/Other Thyroid cancer Diabetes HTN (hypertension) Maternal Grandmother Ovarian cancer Social History Housing: Apartment Alcohol intake: never Patient Tobacco Use Status: Never used Tobacco e-Cigarette/Vaping Use: Never Used Second Hand Smoke Exposure: No service: No Current occupational status: unemployed Cognitive needs: No Hearing needs: No Vision needs: Yes Female Reproductive History Menstrual Age of Menarche: 10 Review of Systems Musc Reports back pain, Reports arthralgias and Reports stiffness Physical Exam Vital Signs: Last Vital Signs Pulse 85 03/09/24 08:14 BP 112/64 03/09/24 08:14 Pulse Ox 100 03/09/24 08:14 Oxygen Delivery Method Room Air 03/09/24 08:14 BMI result Body Mass Index 25.0 Const General: cooperative, healthy appearing and comfortable Nutritional Appearance: average body habitus Orientation/consciousness: patient oriented x3 Limitations: no limitations HEENT Head: Yes normocephalic and Yes atraumatic Mouth: moist mucous membranes Resp Effort & Inspection: normal respiratory effort and able to speak in complete sentences Auscultation: clear to auscultation bilaterally Cardio Rate: regular rate Rhythm: regular rhythm Skin General skin exam: no rashes or lesions noted Neuro General: patient oriented x3 Extrem Other: Minimal osteoarthritic changes of both hands with no active synovitis No nail pitting Normal nailfold capillaroscopy Normal range of motion of hands, wrists, elbows, shoulders without pain Normal range of motion of neck Geovani test 10-14 cm Negative straight leg raise test bilaterally Negative Fabere test bilaterally Bilateral buttock tenderness Bilateral lower lumbar paraspinal muscle tenderness No ankle swelling or tenderness bilaterally Negative MTP squeeze test bilaterally Assessment & Plan Assessment & Plan (1) HLA B27 (HLA B27 positive): Comment: 2014 Code(s): Z15.89 - Genetic susceptibility to other disease Category: Medical Plan: This is a 53-year-old female with positive HLA B27 who presents for follow-up. This is her 1st visit with me. She was evaluated by Dr. Vines in the past and deemed not to have an inflammatory arthritis. She was treated as lumbar osteoarthritis and fibromyalgia. Upon evaluation I think inflammatory back pain should be ruled out, patient does have some symptoms that are suggestive of inflammatory back pain. Check labs, check SI joint x-rays. If SI joint x-rays are negative for sacroiliitis. I will order SI joint MRI to evaluate for sacroiliitis For now patient can continue with her naproxen and gabapentin as prescribed Follow-up in 2 months Plan I spent 30 minutes reviewing patient's chart, evaluating patient, ordering diagnostic workup, counseling patient and documenting in the chart Orders: Orders XR sacroiliac joint min 3V Today M54.31 - Sciatica, right side, M54.32 - Sciatica, left side Comprehensive Met. Panel Today M45.9 - Ankylosing spondylitis of unspecified sites in spine Immunofixation Pnl, Serum Today M45.9 - Ankylosing spondylitis of unspecified sites in spine Complete Blood Count Auto Diff Today M45.9 - Ankylosing spondylitis of unspecified sites in spine C Reactive Protein Today M45.9 - Ankylosing spondylitis of unspecified sites in spine Erythrocyte Sedimentation Rate Today M45.9 - Ankylosing spondylitis of unspecified sites in spine Hepatitis A,B,C Profile Today Z11.59 - Encounter for screening for other viral diseases Protein Electrophoresis, Serum Today M45.9 - Ankylosing spondylitis of unspecified sites in spine T Spot TB Today Z11.7 - Encounter for testing for latent tuberculosis infection Coding Level of Care Code Est Pt Level 5 (20707) Diagnoses HLA B27 (HLA B27 positive) Z15.89
[2024-03-09 08:14] VITALS: BP 112/64; PULSE 85; O2SAT 100; BMI 25.0
== END 2024-03-09 08:51 | disposition home or self-care (01) ==
PROVIDERS: PCP Internal Medicine; Visit Provider Student in an Organized Health Care Education/Training Program
DX: Z15.89 Genetic susceptibility to other disease (principal)
CPT/HCPCS: 99214; 99215

== ENCOUNTER → 2024-03-09 08:03 | Outpatient (BNVA) | payer OTHER, SELFPAY | PROVIDERS: PCP Internal Medicine; Visit Provider Student in an Organized Health Care Education/Training Program | DX: Z15.89 Genetic susceptibility to other disease (principal) | CPT/HCPCS: 99212 ==

== ENCOUNTER 2024-03-15 07:11 | Outpatient (REF) | payer OTHER, SELFPAY ==
--- NOTE | ~2024-03-15 | XR_ITS ---
EXAMINATION: XR SACROILIAC JOINTS CLINICAL INFORMATION: Sciatica right side, back pain goes down to the toes. COMPARISON: Lumbar spine 06/10/2021. TECHNIQUE: 3 views of the sacroiliac joints FINDINGS: Redemonstration of transitional anatomy better characterized on prior studies. Moderate degenerative changes in the bilateral sacroiliac joints. Degenerative changes on limited views of the bilateral hips. Degenerative changes in the imaged lower spine. Small rounded calcifications redemonstrated overlying right upper pelvis. XR/XR sacroiliac joint min 3V IMPRESSION: Moderate degenerative changes in the bilateral sacroiliac joints. Electronically signed by: Janeth German MD 04/12/2024 09:11 AM EDT
[2024-03-15 07:42] LABS: MANUAL DIFF FLAG NO
[2024-03-15 08:08] LABS: Basophils Absolute Auto 0.1 X10*3/uL (0.0-0.2); Basophils Percent Auto 0.6 % (0-2); Eosinophils Absolute Auto 0.3 X10*3/uL (0.0-0.4); Eosinophils Percent Auto 2.7 % (0-4); Hematocrit 37.8 % (37.0-47.0); Hemoglobin 12.2 g/dl (12.0-16.0); Imm Gran Abs Auto 0.03 X10*3/uL (0.00-0.03); Imm Gran Pct Auto 0.3 % (0.0-0.4); Lymphocytes Absolute Auto 3.5 X10*3/uL (1.2-4.9); Mean Corpuscular HGB Conc 32.3 g/dl (31.0-35.0); Mean Corpuscular Hemoglobin 26.6 pg (27.0-33.0); Mean Corpuscular Volume 82.4 fL (80.0-98.0); Mean Platelet Volume 9.7 fL (9.4-12.3); Monocytes Absolute Auto 0.8 X10*3/uL (0.1-1.2); Neutrophils Absolute Auto 6.2 x10*3/uL (2.0-8.3); Neutrophils Percent Auto 57.4 % (45-73); Platelet Count 353 X10*3/uL (160-400); Red Blood Count 4.59 X10*6/uL (4.20-5.50); Red Cell Distribution Width 13.7 % (11.0-16.0); White Blood Count 10.9 X10*3/uL (4.8-10.8)
[2024-03-15 08:30] LABS: Alanine Aminotransferase 13 U/L (0-31); Alkaline Phosphatase 71 U/L (39-117); Anion Gap 10 (12-20); Aspartate Amino Transferase 18 U/L (5-31); Bilirubin Total 0.5 mg/dL (0.0-1.0); Blood Urea Nitrogen 19 mg/dL (9-16); C Reactive Protein 0.37 mg/dL (< or = 0.50); Calcium 9.2 mg/dL (8.4-10.2); Carbon Dioxide 28 mmol/L (22-29); Chloride 104 mmol/L (96-108); Estimated Glomerular Filt Rate > 60; Glucose Random 103 mg/dL (60-115); Potassium 4.2 mmol/L (3.3-5.1); Sodium 138 mmol/L (135-145); Total Protein 7.8 g/dL (6.5-8.0)
[2024-03-15 08:55] LABS: HBS Num1 16.88 mIU/mL (0-7.99); HBc Num1 0.16 S/CO (0.00-0.79); HBsAGNum1 0.41 S/CO (0.00-0.99); Hepatitis A Antibody IgM 0.16 Index (0-0.79); Hepatitis B Core Antibody Nonreactive (Nonreactive); Hepatitis B Surface Antigen Negative (Negative); ~HepC Num1 0.36 S/CO (0.00-0.79); ~Hepatitis A Antibody IgM Nonreactive (Nonreactive); ~Hepatitis B Surface Antibody REACTIVE (Nonreactive); ~Hepatitis C Antibody Nonreactive (Nonreactive)
[2024-03-15 08:57] LABS: Erythrocyte Sedimentation Rate 13 MM/HR (0-20)
[2024-03-17 12:04] LABS: Prot Elec - Albumin 4.1 g/dL (3.8-4.8); Prot Elec - Alpha1 0.3 g/dL (0.2-0.3); Prot Elec - Alpha2 0.7 g/dL (0.5-0.9); Prot Elec - Beta 1 0.5 g/dL (0.4-0.6); Prot Elec - Beta 2 0.5 g/dL (0.2-0.5); Prot Elec - Gamma 1.4 g/dL (0.8-1.7); Prot Elec - Total Protein 7.5 g/dL (6.1-8.1)
[2024-03-18 07:39] LABS: TS Negative Control Passed; TS Panel A 0; TS Panel B 0; TS Positive Control Passed; TSpotTB Negative (Negative)
[2024-03-22 09:48] LABS: IgA 333 mg/dL (47-310); IgG 1709 mg/dL (600-1640); IgM 119 mg/dL (50-300)
== END 2024-03-15 07:12 | disposition home or self-care (01) ==
LOC: HO.LAB 07:11
PROVIDERS: PCP Internal Medicine; Visit Provider Student in an Organized Health Care Education/Training Program
DX: M54.31 Sciatica, right side (principal); M54.32 Sciatica, left side; M54.9 Dorsalgia, unspecified; Z11.59 Encounter for screening for other viral diseases; Z11.7 Encounter for testing for latent tuberculosis infection
CPT/HCPCS: 36415; 72202; 80053; 82784; 84165; 85025; 85652; 86140; 86334; 86481; 86704; 86706; 86709; 86803; 87340

== ENCOUNTER → 2024-05-09 07:43 | Outpatient (BNVA) | payer OTHER, SELFPAY | PROVIDERS: PCP Internal Medicine; Visit Provider Student in an Organized Health Care Education/Training Program | DX: K21.9 Gastro-esophageal reflux disease without esophagitis (principal); R10.13 Epigastric pain; R68.81 Early satiety | CPT/HCPCS: 99212 ==

== ENCOUNTER 2024-05-09 08:42 | Outpatient (AMB) | payer OTHER, SELFPAY ==
[2024-05-09 09:01] VITALS: BP 105/65; PULSE 77; BMI 24.6
--- NOTE | 2024-05-09 09:01 | MHC.OFFVIS ---
Vital Signs 05/09/24 09:01 Height 5 ft 2 in Weight 134 lb 7.712 oz BMI 24.6 BP 105/65 Blood Pressure Location Rt brachial Position Sitting Pulse 77 Intake Visit Reasons: 6 months follow up Intake Note: Patient returns to 6 months follow up of GERD. CC: Patient reports doing well and denies having any new GI concern today. Back Hoe Operator Required: Yes Accompanied by: Self / Same As Patient Allergies No Known Allergies Allergy (Verified 05/09/24 09:02) HPI HPI 6 months follow up: Details: Assessment & Plan (1) GERD (gastroesophageal reflux disease): Code(s): K21.9 - Gastro-esophageal reflux disease without esophagitis Qualifiers: Esophagitis presence: without esophagitis Qualified Code(s): K21.9 - Gastro-esophageal reflux disease without esophagitis (2) Early satiety: Comment: GASTRIC EMPTYING STUDY MPRESSION: Probable normal solid food gastric emptying study. Because the patient was not able to ingest fully the standard meal, the measured retention may not reflect gastric emptying following a full meal but the minimal retention noted suggests no significant abnormal retention of solid food is present. Dictated By:ROBERTO CURRY MDSigned By:<Electronically signed by ROBERTO CURRY MD in OV>12/11/20 Code(s): R68.81 - Early satiety (3) Epigastric pain: Code(s): R10.13 - Epigastric pain (4) Screening for colon cancer: Code(s): Z12.11 - Encounter for screening for malignant neoplasm of colon Plan [place] [facility] She has not heard re: colonoscopy. Her meds continue to help her well. Continues on reglan w/o s/e. The omeprazole 40mg qd is controlling her GERD. With this she is satisfied with her GI regimen. I sent another note to the schedulers regarding her colonoscopy. Return office visit in 6 months Orders Colonoscopy - GI Use Only 11/16/23 Z12.11 - Encounter for screening for malignant neoplasm of colon Medications: Refilled omeprazole 40 mg PO DAILY 90 caps 6RF 90 days K21.9 - Gastro-esophageal reflux disease without esophagitis metoclopramide HCl (Reglan) 10 mg PO BID 60 tabs 6RF R11.2 - Nausea with vomiting, unspecified COLONOSCOPY BIOPSY CORRESPONDENCE On 01/12/24 @ 10:34 Sharmin De La Torre Wrote To [facility] attempts made 2calls and a letter was mailed to patient with no response removing. On 12/01/23 @ 08:13 Sharmin De La Torre Wrote To [facility] lvm, on spread sheet. letter also mailed. On 11/17/23 @ 13:04 Sharmin De La Torre Wrote To [facility] called pt to schedueld, i got an interpreted patient hung up. 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 Sharmin De La Torre completed item. On 11/16/23 @ 09:37 Poornima Sterling Wrote To [facility] She has PEG prep at home/ On 11/16/23 @ 09:35 Poornima Sterling Wrote To [facility] I ordered a colonoscopy for her a while back, have you ever received a work note? TODAYS VISIT Indian #Samuel Miller Continues on reglan w/o s/e. The omeprazole 40mg qd is controlling her GERD. She says she has not heard RE: colonoscopy. HOwever my staff says they have been trying to get her - at this point since she has no know FHX of crc or polyps we will order Cologuard. I showed her the Cologuard video and she is agreeable to this test since we have had so many miscommunication trying to get her booked and I think language barriers playing into it. ROV 8 weeks. [facility] Medical History Lumbar back pain with radiculopathy affecting left lower extremity Bilateral sciatica Leg cramps DILAN (generalized anxiety disorder) Mild recurrent major depression Left shoulder pain Left elbow pain Fibromyalgia Left shoulder pain Right knee pain Right elbow pain Depression with anxiety Insomnia Lumbar spondylosis Chronic idiopathic constipation Surgical History H/O breast biopsy History of tubal ligation Family History Father Leukemia Cancer Diabetes Mother Arthritis HTN (hypertension) Family/Other Thyroid cancer Diabetes HTN (hypertension) Maternal Grandmother Ovarian cancer Social History Housing: Apartment Alcohol intake: never Patient Tobacco Use Status: Never used Tobacco e-Cigarette/Vaping Use: Never Used Second Hand Smoke Exposure: No service: No Current occupational status: unemployed Cognitive needs: No Hearing needs: No Vision needs: Yes Female Reproductive History Menstrual Age of Menarche: 10 Review of Systems Const Denies fatigue, Denies fever(s), Denies night sweats, Denies poor appetite and Denies weight loss ENT Reports Normal hearing present, Denies dental pain, Denies dysphagia, Denies hearing loss, Denies mouth pain, Denies odynophagia, Denies throat swelling, Denies tongue swelling and Reports other (Dentition adequate) Card Reports no additional complaints Resp Reports no additional complaints GI Details: Denies abdominal pain, Denies melena, Denies bloating, Denies hematochezia, Denies constipation, Denies GI cramping, Denies dysphagia, Denies excessive flatus, Reports early satiety, Reports heartburn, Denies diarrhea, Denies nausea, Denies odynophagia, Denies vomiting and Denies hematemesis Skin/Breast Denies pruritus, Denies lesions, Denies rash and Denies jaundice Neuro Reports Normal hearing present and Denies Abnormal speech present Endo Denies fatigue Aller/Immun Denies throat swelling and Denies tongue swelling Physical Exam Vital Signs: Last Vital Signs Pulse 77 05/09/24 09:01 BP 105/65 05/09/24 09:01 BMI result Body Mass Index 24.6 Const General: cooperative, no acute distress, well developed and well groomed Nutritional Appearance: average body habitus and well nourished Orientation/consciousness: oriented to person, oriented to place and oriented to time Limitations: language barrier HEENT Head: Yes normocephalic and Yes atraumatic Eyes General: appearance normal, both eyes and all related structures Pupils: Equal, round and reactive pupils present Neck Neck: Yes normal visual inspection and Yes no lymphadenopathy Thyroid: Thyroid normal Resp Effort & Inspection: normal respiratory effort and able to speak in complete sentences Auscultation: clear to auscultation bilaterally Cardio Rate: regular rate Rhythm: regular rhythm Heart sounds: Normal, physiologic split S2 sound present Peripheral pulses: radial pulses present and posterior tibial pulses present GI Inspection: No distended and No Abdominal panniculus present Palpation (GI): Soft to palpation, nontender, no guarding, not rigid and No hepatosplenomegaly present Percussion: Yes normal to percussion Auscultation: normal bowel sounds Rectal Exam - Female: deferred Skin General skin exam: no rashes or lesions noted, turgor normal, skin not dry, no jaundice, No spider nevi and no striae Rashes: no rashes Nails: normal Neuro General: oriented to person, oriented to place and oriented to time Cranial nerves: Yes Equal, round and reactive pupils present and Yes Normal hearing present Speech: No Abnormal speech present Extrem General: Yes normal to inspection, No clubbing, No cyanosis and No edema Psych Appearance: grossly normal and well kempt Mental Status: mental status grossly normal Speech and movement: Normal speech and movement present Affect: normal affect Attitude: cooperative Thought process: Normal thought process present and not confabulating Thought content: Normal thought content present Insight: Limited insight present (Psych) Judgement: Limited judgement present (Psych) Assessment & Plan Assessment & Plan (1) GERD (gastroesophageal reflux disease): Code(s): K21.9 - Gastro-esophageal reflux disease without esophagitis Category: Medical Qualifiers: Esophagitis presence: without esophagitis Qualified Code(s): K21.9 - Gastro-esophageal reflux disease without esophagitis (2) Epigastric pain: Code(s): R10.13 - Epigastric pain Category: Medical (3) Early satiety: Comment: GASTRIC EMPTYING STUDY MPRESSION: Probable normal solid food gastric emptying study. Because the patient was not able to ingest fully the standard meal, the measured retention may not reflect gastric emptying following a full meal but the minimal retention noted suggests no significant abnormal retention of solid food is present. Dictated By:ROBERTO CURRY MDSigned By:<Electronically signed by ROBERTO CURRY MD in OV>12/11/20 Code(s): R68.81 - Early satiety Category: Medical Plan Indian #Samuel Miller Continues on reglan w/o s/e. The omeprazole 40mg qd is controlling her GERD. She says she has not heard RE: colonoscopy. HOwever my staff says they have been trying to get her - at this point since she has no know FHX of crc or polyps we will order Cologuard. I showed her the Cologuard video and she is agreeable to this test since we have had so many miscommunication trying to get her booked and I think language barriers playing into it. ROV 8 weeks. Coding Level of Care Code Est Pt Level 3 (89572) Diagnoses Gastroesophageal reflux disease without esophagitis K21.9 Esophagitis presence: without esophagitis Epigastric pain R10.13 Early satiety R68.81
== END 2024-05-09 09:38 | disposition home or self-care (01) ==
PROVIDERS: PCP Internal Medicine; Visit Provider Nurse Practitioner
DX: K21.9 Gastro-esophageal reflux disease without esophagitis (principal); R10.13 Epigastric pain; R68.81 Early satiety
CPT/HCPCS: 99213

== ENCOUNTER → 2024-05-31 15:10 | Outpatient (BNV) | payer OTHER, SELFPAY | PROVIDERS: PCP Internal Medicine; Visit Provider Radiology Diagnostic Radiology | DX: M54.50 Low back pain, unspecified (principal) | CPT/HCPCS: 72195 ==

== ENCOUNTER 2024-05-31 16:40 | Outpatient (REF) | payer OTHER, SELFPAY ==
--- NOTE | ~2024-05-31 | MR_ITS ---
EXAMINATION: MR PELVIS WITH CONTRAST CLINICAL INFORMATION: Chronic low back pain, with some features of inflammatory back pain. 53 year female. COMPARISON: No prior MRI or CT. Plain films of the SI joints and pelvis 03/15/2024. TECHNIQUE: MRI of the bony pelvis was performed using standard sequences without IV contrast. Exam performed on a 1.5 Jory Siemens high-field magnet. FINDINGS: BONY, LIGAMENTOUS, AND TENDINOUS STRUCTURES: -The SI joints image normally. No significant arthritis, or evidence of inflammatory arthropathy. -Moderate degenerative disc changes L2-3, and mild changes L3-4 and L4-5. Disc bulges at these levels without significant mass effect on the thecal sac. L5-S1 appears normal. -There are mild bilateral hip joint degenerative changes, without evidence of inflammatory arthropathy or joint effusion. -No gross bone marrow edema, or abnormal infiltrating bone marrow signal. -There is edema surrounding the right greater than left gluteus medius tendons, findings consistent with Dr. tendinopathy. There is a tiny amount of fluid in the right greater than left greater trochanteric bursa. -The hamstrings insertions appear normal. -The gluteal insertions appear otherwise normal. -Iliopsoas tendons and muscles appear normal. -The pubic symphysis is normal in signal. -The pelvic girdle musculature appears normal. PELVIC VISCERA: -The uterus is anteverted and anteflexed, and demonstrates approximately 4 similar appearing T2 hypointense myometrial fibroids, most significant submucosal location ventral mid uterine segment, measuring 1.5 x 2.1 x 1.9 cm (AP, TRV, CC) (series 4, image 12). Borderline junctional zone thickness at 1.0 cm, for which adenomyosis not excluded. There are numerous nabothian cysts in the cervix. -There are no adnexal masses. Moderate diverticulosis of the sigmoid noted. Urinary bladder images normally. No pelvic ascites. No lymphadenopathy. PELVIC WALL SOFT TISSUES: -No masses or abnormal lymphadenopathy. No hernia seen. MR/MR pelvis wo con IMPRESSION: 1. Right greater than left tendinopathy of the gluteus medius tendons with associated small amounts of fluid in the right greater than left greater trochanteric bursa. 2. Normal-appearing SI joints without arthropathy. 3. Mild degenerative changes in the bilateral hip joints. No joint effusions. 4. Degenerative disc changes lower lumbar spine most notable at L2-3. 5. There are 4 uterine myomas measuring up to 2.1 cm as detailed. Borderline thickening of the junctional zone at 10 mm. Findings could suggest underlying adenomyosis. 5. Sigmoid diverticulosis. Electronically signed by: Narendra Tejada MD 07/11/2024 12:17 PM [facility]
== END 2024-05-31 16:41 | disposition home or self-care (01) ==
LOC: HO.MRI 16:40
PROVIDERS: PCP Internal Medicine; Visit Provider Student in an Organized Health Care Education/Training Program
DX: M54.50 Low back pain, unspecified (principal); G89.29 Other chronic pain
CPT/HCPCS: 72195

== ENCOUNTER 2024-07-24 08:04 | Outpatient (AMB) | payer OTHER, SELFPAY ==
--- NOTE | 2024-07-24 08:14 | MHC.OFFVIS ---
Vital Signs 07/24/24 08:19 Height 5 ft 2 in Weight 134 lb 0.657 oz BMI 24.5 BP 122/70 Blood Pressure Location Rt brachial Position Sitting Respiration 16 Pulse 71 Pulse Source Pulse Oximeter Pulse Oximetry (%) 98 Oxygen Delivery Method Room Air Intake Visit Reasons: +HLA b27 Intake Note: Patient presents for +HLA b27. Ediscovery Project Manager Required: Yes Ediscovery Project Manager Language: Company [employer]: Ediscovery Project Manager Present Ediscovery Project Manager Name: [id number] Information Interpreted: non-clinical & clinical Allergies No Known Allergies Allergy (Verified 07/24/24 08:18) Medication List - Last Reconciled 07/24/24 by Kolby Stevens MD aripiprazole (Abilify) 20 mg PO DAILY baclofen 10 mg PO BID PRN betamethasone dipropionate 0.05% 1 appl topical BID PRN 30 days cholecalciferol (vitamin D3) (Vitamin D3) 25 mcg PO DAILY 90 days clonazepam 0.5 mg PO BEDTIME fluoxetine 80 mg PO DAILY gabapentin 300 - 600 mg (1 - 2 x 300 mg) PO BEDTIME magnesium 250 mg PO DAILY metoclopramide HCl (Reglan) 10 mg PO BID naproxen 500 mg PO BID PRN omeprazole 40 mg PO DAILY 90 days zolpidem (Ambien) 10 mg PO BEDTIME PRN HPI Comments Details: Patient returns for follow-up after completion of her pelvic MRI. Continues to feel about the same Initial history: This is a 53-year-old female with positive HLA B27 who presents for follow-up. She was recently evaluated by Dr. Vines and deemed not to have an inflammatory arthritis. She was treated as lumbar osteoarthritis and fibromyalgia. Patient states that she has 0 back pain that radiates across her entire back. Intermittent buttock pain. Gets intermittent pain in her feet. She has morning stiffness of her back most days that lasts for a few hours, improved with moving around and taking naproxen 500 mg, s she sometimes takes another 500 mg at night as well. She also takes gabapentin but states that naproxen is much more helpful. She denies any swollen joints. She denies any history suggestive of uveitis or colitis. Denies history of psoriasis. She is unaware of any family history of an autoimmune rheumatic disease. [facility] Medical History Lumbar back pain with radiculopathy affecting left lower extremity Bilateral sciatica Leg cramps DILAN (generalized anxiety disorder) Mild recurrent major depression Left shoulder pain Left elbow pain Fibromyalgia Left shoulder pain Right knee pain Right elbow pain Depression with anxiety Insomnia Lumbar spondylosis Chronic idiopathic constipation Surgical History H/O breast biopsy History of tubal ligation Family History Father Leukemia Cancer Diabetes Mother Arthritis HTN (hypertension) Family/Other Thyroid cancer Diabetes HTN (hypertension) Maternal Grandmother Ovarian cancer Social History Housing: Apartment Alcohol intake: never Patient Tobacco Use Status: Never used Tobacco e-Cigarette/Vaping Use: Never Used Second Hand Smoke Exposure: No service: No Current occupational status: unemployed Cognitive needs: No Hearing needs: No Vision needs: Yes Female Reproductive History Menstrual Age of Menarche: 10 Review of Systems Musc Reports back pain, Reports arthralgias and Reports stiffness Physical Exam Vital Signs: Last Vital Signs Pulse 71 07/24/24 08:19 Resp 16 07/24/24 08:19 BP 122/70 07/24/24 08:19 Pulse Ox 98 07/24/24 08:19 Oxygen Delivery Method Room Air 07/24/24 08:19 BMI result Body Mass Index 24.5 Const General: cooperative, healthy appearing and comfortable Nutritional Appearance: average body habitus Orientation/consciousness: patient oriented x3 Limitations: no limitations HEENT Head: Yes normocephalic and Yes atraumatic Resp Effort & Inspection: normal respiratory effort and able to speak in complete sentences Neuro General: patient oriented x3 Results Reviewed Results Reviewed: Ordering Physician: Kolby Stevens MD Date of Service: 05/31/24 Procedure(s): MR pelvis wo con Accession Number(s): [id number] cc: Anna Vaughn MD; Kolby Stevens MD~ EXAMINATION: MR PELVIS WITH CONTRAST CLINICAL INFORMATION: Chronic low back pain, with some features of inflammatory back pain. 53 year female. COMPARISON: No prior MRI or CT. Plain films of the SI joints and pelvis 03/15/2024. TECHNIQUE: MRI of the bony pelvis was performed using standard sequences without IV contrast. Exam performed on a 1.5 Jory Siemens high-field magnet. FINDINGS: BONY, LIGAMENTOUS, AND TENDINOUS STRUCTURES: -The SI joints image normally. No significant arthritis, or evidence of inflammatory arthropathy. -Moderate degenerative disc changes L2-3, and mild changes L3-4 and L4-5. Disc bulges at these levels without significant mass effect on the thecal sac. L5-S1 appears normal. -There are mild bilateral hip joint degenerative changes, without evidence of inflammatory arthropathy or joint effusion. -No gross bone marrow edema, or abnormal infiltrating bone marrow signal. -There is edema surrounding the right greater than left gluteus medius tendons, findings consistent with DrGian tendinopathbryce. There is a tiny amount of fluid in the right greater than left greater trochanteric bursa. -The hamstrings insertions appear normal. -The gluteal insertions appear otherwise normal. -Iliopsoas tendons and muscles appear normal. -The pubic symphysis is normal in signal. -The pelvic girdle musculature appears normal. PELVIC VISCERA: -The uterus is anteverted and anteflexed, and demonstrates approximately 4 similar appearing T2 hypointense myometrial fibroids, most significant submucosal location ventral mid uterine segment, measuring 1.5 x 2.1 x 1.9 cm (AP, TRV, CC) (series 4, image 12). Borderline junctional zone thickness at 1.0 cm, for which adenomyosis not excluded. There are numerous nabothian cysts in the cervix. -There are no adnexal masses. Moderate diverticulosis of the sigmoid noted. Urinary bladder images normally. No pelvic ascites. No lymphadenopathy. PELVIC WALL SOFT TISSUES: -No masses or abnormal lymphadenopathy. No hernia seen. MR/MR pelvis wo con IMPRESSION: 1. Right greater than left tendinopathy of the gluteus medius tendons with associated small amounts of fluid in the right greater than left greater trochanteric bursa. 2. Normal-appearing SI joints without arthropathy. 3. Mild degenerative changes in the bilateral hip joints. No joint effusions. 4. Degenerative disc changes lower lumbar spine most notable at L2-3. 5. There are 4 uterine myomas measuring up to 2.1 cm as detailed. Borderline thickening of the junctional zone at 10 mm. Findings could suggest underlying adenomyosis. 5. Sigmoid diverticulosis. Electronically signed by: Narendra Tejada MD 07/11/2024 12:17 PM EST Assessment & Plan Assessment & Plan (1) HLA B27 (HLA B27 positive): Comment: 2014 Code(s): Z15.89 - Genetic susceptibility to other disease Category: Medical Plan: This is a 53-year-old female with positive HLA B27 who presents for follow-up after completion of her pelvic MRI. Pelvic MRI did not show sacroiliitis or other signs suggestive of inflammatory arthritis. At this time there is no evidence of an autoimmune rheumatic disease. Imaging was rather consistent with gluteus tendinosis and degenerative changes. Referred patient to PT. If she does not improve, pain management evaluation can be considered Follow-up with rheumatology as needed Plan I spent 15 minutes reviewing patient's chart, evaluating patient, counseling patient and documenting in the chart Orders: Orders PT Evaluation and Treatment Today M54.16 - Radiculopathy, lumbar region, M76.01 - Gluteal tendinitis, right hip, M76.02 - Gluteal tendinitis, left hip Coding Level of Care Code Est Pt Level 3 (15804) Diagnoses HLA B27 (HLA B27 positive) Z15.89
[2024-07-24 08:19] VITALS: BP 122/70; PULSE 71; RESP 16; O2SAT 98; BMI 24.5
== END 2024-07-24 08:43 | disposition home or self-care (01) ==
PROVIDERS: PCP Internal Medicine; Visit Provider Student in an Organized Health Care Education/Training Program
DX: Z15.89 Genetic susceptibility to other disease (principal)
CPT/HCPCS: 99213

== ENCOUNTER → 2024-07-24 08:04 | Outpatient (BNVA) | payer OTHER, SELFPAY | PROVIDERS: PCP Internal Medicine; Visit Provider Student in an Organized Health Care Education/Training Program | DX: Z15.89 Genetic susceptibility to other disease (principal) | CPT/HCPCS: 99212 ==

== ENCOUNTER 2024-07-31 07:52 | Outpatient (AMB) | payer OTHER, SELFPAY ==
--- NOTE | 2024-07-31 07:53 | A.OFFPC_ITS ---
Vital Signs 07/31/24 07:55 Height 5 ft 2 in Weight 134 lb BMI 24.5 BP 120/76 Blood Pressure Location Lt brachial Position Sitting Intake Visit Reasons: PE Intake Note: Patient here for a physical exam Geospatial Technologist Required: No Accompanied by: Self / Same As Patient Allergies No Known Allergies Allergy (Verified 07/31/24 08:21) Medication List - Last Reconciled 07/31/24 by Anna Sinha MD aripiprazole (Abilify) 20 mg PO DAILY baclofen 10 mg PO BID PRN betamethasone dipropionate 0.05% 1 appl topical BID PRN 30 days cholecalciferol (vitamin D3) (Vitamin D3) 25 mcg PO DAILY 90 days clonazepam 0.5 mg PO BEDTIME fluoxetine 80 mg PO DAILY gabapentin 300 - 600 mg (1 - 2 x 300 mg) PO BEDTIME magnesium 250 mg PO DAILY metoclopramide HCl (Reglan) 10 mg PO BID naproxen 500 mg PO BID PRN omeprazole 40 mg PO DAILY 90 days zolpidem (Ambien) 10 mg PO BEDTIME PRN Tobacco use date assessed: 01/31/24 Dental Screening Dental Screen Date: 01/31/24 HPI HPI Comments History of Present Illness Details The patient is a 53-year-old female presenting for her physical exam. She has bilateral gluteal tendinopathy and reports that the pain originated in the fingers and has progressively moved upwards, reaching the gluteal region over the past week. An MRI scan revealed tendinitis in both gluteal tendons, with the left side being more affected. The patient reports inflamed tendons causing considerable discomfort. There has been no mention of aggravating or alleviating factors discussed for this condition during this visit. Additionally, the patient has a history of depression with anxiety, which is currently managed with Abilify, clonazepam, and fluoxetine. Insomnia is also reported and treated with Ambien. The patient was urged to repeat laboratory tests, including cholesterol, which were previously done in October, to monitor hyperlipidemia and other metabolic parameters. She had a mammogram done 2023 which was normal. 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 She declines colonoscopy but is willing to do Cologuard and does have it at home but has not perform it yet. - Vitamin D supplementation discussed - Discussion of depression with anxiety management - Insomnia management with Ambien - Screening labs for hyperlipidemia anupam mmended (cholesterol, glucose, renal function) - Recommendation for physiotherapy for g luteal tendinopathy PFSH Medical History Lumbar back pain with radiculopathy affecting left lower extremity Bilateral sciatica Leg cramps DILAN (generalized anxiety disorder) Mild recurrent major depression Left shoulder pain Left elbow pain Fibromyalgia Left shoulder pain Right knee pain Right elbow pain Depression with anxiety Insomnia Lumbar spondylosis Chronic idiopathic constipation Surgical History H/O breast biopsy History of tubal ligation Family History Father Leukemia Cancer Diabetes Mother Arthritis HTN (hypertension) Family/Other Thyroid cancer Diabetes HTN (hypertension) Maternal Grandmother Ovarian cancer Social History Housing: Apartment Alcohol intake: never Patient Tobacco Use Status: Never used Tobacco e-Cigarette/Vaping Use: Never Used Second Hand Smoke Exposure: No service: No Current occupational status: unemployed Cognitive needs: No Hearing needs: No Vision needs: Yes Female Reproductive History Menstrual Age of Menarche: 10 Questionnaire PHQ-9 Over the last 2 weeks, how often have you been bothered by any of the following problems? 1. Little interest or pleasure in doing things: several days 2. Feeling down, depressed, or hopeless: several days 3. Trouble falling or staying asleep, or sleeping too much: several days 4. Feeling tired or having little energy: several days 5. Poor appetite or overeating: more than half the days 6. Feeling bad about yourself - or that you are a failure or have let yourself or your family down: not at all 7. Trouble concentrating on things, such as reading the newspaper or watching television: several days 8. Moving or speaking so slowly that other people could have noticed. Or the opposite - being so fidgety or restless that you have been moving around a lot more than usual: several days 9. Thoughts that you would be better off or of hurting yourself in some way: not at all Total score: 8 Depression Screening Interpretation: Positive Depression Screening Follow-up: Existing condition, In treatment, Community Mental Health Worker F/U and Follow- up Visit Requested Depression Screening Done: Yes 72632 - PHQ-9 Billing: Yes Source: Developed by Drs. Servando Gomes, Rach Kaur, Alex Olivera and colleagues, with an educational donya from [employer]. Thrive Questionnaire Date Thrive assessed: 01/31/24 I am a: Patient What is your living situation today?: I have a steady place to live Within the past 12 months, did the food you bought not last and you didn't have the money to get more?: I choose not to answer this question Within the past 12 months, did you worry whether your food would run out before you got money to buy more?: Never true Do you have trouble paying for medicines?: I choose not to answer this question Do you have trouble getting transportation to medical appointments?: No Do you have trouble paying your heating and electricity bill?: No Do you have trouble taking care of your child, family member or friend?: No Do you have trouble with day-to-day activities such as bathing, preparing meals, shopping, managing finances, etc.?: I choose not to answer this question Are you currently unemployed and looking for a job?: I choose not to answer this question Are you interested in more education?: I choose not to answer this question Please select the resources that you would like help with: None Currently or been in a relationship where the following occur: I choose not to answer THRIVE Score: 0 AUDIT C Alcohol Use Questionnaire (AUDIT-C) 1. How often do you have a drink containing alcohol?: Never Total Score: 0 Score Reviewed/Action Taken: No DILAN-7 AMB Questionnaire DILAN-7 Date DILAN - 7 assessed: 01/31/24 Feeling nervous, anxious, or on edge: 1 = Several days Not being able to stop or control worryin = Several days Worrying too much about different things: 1 = Several days Trouble relaxin = Several days Being so restless that it is hard to sit still: 1 = Several days Becoming easily annoyed or irritable: 1 = Several days Feeling afraid as if something awful might happen: 0 = Not at all Total DILAN-7 score (0-4 normal; 5-9 mild; 10-14 moderate; 15-21 severe): 6 Source: Developed by Drs. Servando Gomes, Rach Kaur, Alex Olivera and colleagues, with an educational donya from [employer]. DILAN-7 Assessment Billing DILAN-7 Assessment Tool: DILAN-7 Assessment 54363 Review of Systems Const Details: Musculoskeletal: - Reports finger pain progressing to gluteal region Psychiatric: - Reports depressive and anxiety symptoms Physical exam (Primary Care) Vital Signs: Last Vital Signs BP 120/76 07/31/24 07:55 BMI result Body Mass Index 24.5 Tobacco/Smoking Status: Tobacco use Status Tobacco use date assessed 01/31/24 07/31/24 07:53 Patient Tobacco Use Status Never used Tobacco 07/31/24 07:53 e-Cigarette/Vaping Use Never Used 07/31/24 07:53 PHQ-9: PHQ-9 Score PHQ-9: Total score 8 07/31/24 08:23 Depression Screening Interpretation: Positive Depression Screening Follow-up: Existing condition, In treatment, Community Mental Health Worker F/U and Follow- up Visit Requested Thrive Assessment: Date of Thrive Assessment Date Thrive assessed 01/31/24 07/31/24 07:53 Currently or been in a relationship where the following occur: I choose not to answer Const Other: General: Cooperative, healthy appearing, comfortable, no acute distress and well developed Orientation: Patient oriented x3 Limitations: No limitations Head: Normal to inspection Ears: Hearing grossly normal bilaterally Nose: Normal external nose present Face and sinus: Normal facial exam Eyes: Appearance normal, both eyes and all related structures Neck: Normal visual inspection and Yes full ROM Respiratory: Normal respiratory effort and able to speak in complete sentences. Clear to auscultation bilaterally Cardiovascular: Regular rate and rhythm. Normal S1 and S2 GI: Normal to inspection. Soft to palpation and nontender Skin: No rashes or lesions noted Neuro: Patient oriented x3 Extremities: Normal to inspection, but patient reports a lot of pain from the fingers, with pain extending upwards. Tendonitis in the gluteus, more pronounced in the left side, as per MRI results. Office Procedures Flu Questionnaire Does the patient have a severe egg allergy?: No Immunizations Fluarix Triv [id number] (PF) 45 mcg (15 mcg x 3)/0.5 mL IM syringe Performing Provider: Anna Sinha MD [facility] Documented (not given) by: ZANE Apodaca on 07/31/24 08:04 Reason Not Given: Patient Refused Coding Level of Care Code Est Pt Level 3 (24298) Est Pt Prev Care 40-64y(86614) Diagnoses Physical exam Z00.00 Gluteal tendinitis of both buttocks M76.01; M76.02 Mild recurrent major depression F33.0 Additional Codes DILAN-7 Assessment Billing - DILAN-7 Assessment Tool: DILAN-7 Assessment 59439 ([id number]) PHQ-9 - 67173 - PHQ-9 Billing: Yes ([id number]) Time Spent (min) 32 Assessment & Plan Assessment & Plan (1) Physical exam: Code(s): Z00.00 - Encounter for general adult medical examination without abnormal findings Category: Medical (2) Gluteal tendinitis of both buttocks: Code(s): M76.01 - Gluteal tendinitis, right hip; M76.02 - Gluteal tendinitis, left hip Category: Medical (3) Mild recurrent major depression: Code(s): F33.0 - Major depressive disorder, recurrent, mild Category: Medical Plan - Continue current medication regimen for depression with anxiety - Physiotherapy referral for bilateral gluteal tendinopathy - Laboratory tests to be repeated, including lipid panel and metabolic screening - Continue omeprazole for gastroesophageal reflux disease - Discussion about potential use of Meloxicam for pain management was noted but not recommended yet Patient was informed and verbally consented to the use of an ambient scribe for clinic note documentation during this visit. During the visit, we discussed the patient's current treatment plan for depression and anxiety, which includes Abilify, clonazepam, and fluoxetine. This combination appears to be managing symptoms effectively. The MRI results indicated bilateral gluteal tendinitis, more severe on the left, and physiotherapy was recommended as a treatment course. We discussed the need for routine bloodwork to monitor for hyperlipidemia and other metabolic issues, given her last test was in October. I emphasized the importance of managing insom sierra and provided reassurance about continuing Ambien while addressing any potential side effects. Orders: Orders Vitamin B12 and Folate Today E53.8 - Deficiency of other specified B group vitamins PT Evaluation and Treatment 07/24/24 M54.16 - Radiculopathy, lumbar region, M76.01 - Gluteal tendinitis, right hip, M76.02 - Gluteal tendinitis, left hip Lipid Panel Today E78.5 - Hyperlipidemia, unspecified, Z00.00 - Encounter for general adult medical examination without abnormal findings Influenza [id number] Immunization Today Z23 - Encounter for immunization Vitamin D 25-OH Total Today E55.9 - Vitamin D deficiency, unspecified Comprehensive [place] [facility]. Panel Fast Today Z00.00 - Encounter for general adult medical examination without abnormal findings Patient Instructions: - Schedule and attend physiotherapy sessions for tendinitis - Continue prescribed medications as directed - Complete ordered laboratory tests within the next three months - Maintain follow-up appointments for management and review of depression, anxiety, and hyperlipidemia - Return to clinic if the pain worsens or new symptoms arise
[2024-07-31 07:55] VITALS: BP 120/76; BMI 24.5
== END 2024-07-31 08:35 | disposition home or self-care (01) ==
PROVIDERS: PCP Internal Medicine; Visit Provider Internal Medicine
DX: Z00.00 Encounter for general adult medical examination without abnormal findings (principal); M76.01 Gluteal tendinitis, right hip; M76.02 Gluteal tendinitis, left hip; F33.0 Major depressive disorder, recurrent, mild; Z23 Encounter for immunization

== ENCOUNTER 2024-11-13 10:01 | Outpatient (RCR) | payer OTHER, SELFPAY ==
--- NOTE | 2024-10-16 10:54 | MHC.PT.EP ---
[facility] [place] Office [place] Office [place] Office [address] [phone] F: [phone] F: [phone] F: [phone] F: [phone] Physical Therapy Plan of Care Date of Evaluation: 10/16/24 Date of Surgery: Diagnosis: lumbar back pain with radiculopathy B gluteal tendinitis Assessment: 53 y/o female referred to PT with lumbar radiculopathy and B gluteal tendinitis. S/s consistent with B gluteal tendinopathy. 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 Examinations shows normal lumbar/ hip AROM, decreased core/ hip strength, poor ability to stabilize pelvis with LE movement, pain, and impaired gait pattern. Recommend PT2x/week for 5 weeks to address impairments, implement HEP, and optimize functional mobility. Pt would like to come 1x/week Frequency and Duration: The patient will be seen 1x/week for 5 weeks Short Term Goals: 3 weeks I with HEP Perform pelvic tilt with proper mechanics and breathing Fpc Goals: 5 weeks I with HEP and self management of sx Pt will improve LEFS to 30/80 (IR 39/80) Pt will be able to demonstrate SLR with appropriate pelvic stabilization Treatment Plan: Modalities to reduce pain, spasms and effusion. Manual therapy to restore motion and function. Therapeutic exercise to improve strength and flexibility. Neuromuscular re-education for posture and balance. Therapeutic activities to return to functional activities of daily living. Electronically signed by: Christiane Lara PT Please sign and return to therapist. Thank you for your referral.
--- NOTE | 2025-01-01 07:45 | MHC.PT.EP ---
[facility] [place] Office [place] Office [address] [phone] F: [phone] F: [phone] F: [phone] F: [phone] Physical Therapy Plan of Care Date of Evaluation: 10/16/24 Date of Surgery: Diagnosis: lumbar back pain with radiculopathy B gluteal tendinitis Assessment: 53 y/o female referred to PT with lumbar radiculopathy and B gluteal tendinitis. S/s consistent with B gluteal tendinopathy. Reports pain and difficulty with walking, standing, stairs, and suction plate roller hand. Examinations shows normal lumbar/ hip AROM, decreased core/ hip strength, poor ability to stabilize pelvis with LE movement, pain, and impaired gait pattern. Recommend PT2x/week for 5 weeks to address impairments, implement HEP, and optimize functional mobility. Pt would like to come 1x/week Frequency and Duration: The patient will be seen 1x/week for 5 weeks Short Term Goals: 3 weeks I with HEP Perform pelvic tilt with proper mechanics and breathing Long-Term Goals: 5 weeks I with HEP and self management of sx Pt will improve LEFS to 30/80 (IR 39/80) Pt will be able to demonstrate SLR with appropriate pelvic stabilization Treatment Plan: Modalities to reduce pain, spasms and effusion. Manual therapy to restore motion and function. Therapeutic exercise to improve strength and flexibility. Neuromuscular re-education for posture and balance. Therapeutic activities to return to functional activities of daily living. Electronically signed by: Christiane Lara PT Please sign and return to therapist. Thank you for your referral.
== END 2025-01-01 07:45 | disposition home or self-care (01) ==
LOC: HO.PT 10:01
PROVIDERS: PCP Internal Medicine; Visit Provider Internal Medicine
DX: M76.01 Gluteal tendinitis, right hip (principal); M76.02 Gluteal tendinitis, left hip; M54.16 Radiculopathy, lumbar region
CPT/HCPCS: 97110; 97112; 97162

== ENCOUNTER 2024-12-06 08:19 | Outpatient (AMB) | payer OTHER, SELFPAY ==
[2024-12-06 08:31] VITALS: BP 118/74; BMI 24.9
--- NOTE | 2024-12-06 08:31 | A.OFFVIS_ITS ---
Vital Signs 12/06/24 08:31 Height 5 ft 2 in Weight 136 lb BMI 24.9 BP 118/74 Intake Visit Reasons: annual Sports Complex Attendant Required: Yes Sports Complex Attendant Language: Squeegeer And Former Services: Sports Complex Attendant Present (in person) Sports Complex Attendant Name: Pura DEGROOT Information Interpreted: non-clinical & clinical Clinic Nurse: Clinic Nurse Present (Pura DEGROOT) Accompanied by: Self / Same As Patient Allergies No Known Allergies Allergy (Verified 12/06/24 08:37) Post menopausal: Yes HPI Comments Details: Presenting for annual exam. No complaints. Last Pap/HPV was negative in 12/22 Last Mammogram was BI-RADS 2 in 11/23 No previous screening Colonoscopy, the patient was referred for screening colonoscopy last year [facility] Medical History Lumbar back pain with radiculopathy affecting left lower extremity Bilateral sciatica Leg cramps DILAN (generalized anxiety disorder) Mild recurrent major depression Left shoulder pain Left elbow pain Fibromyalgia Left shoulder pain Right knee pain Right elbow pain Depression with anxiety Insomnia Lumbar spondylosis Chronic idiopathic constipation Surgical History H/O breast biopsy History of tubal ligation Family History Father Leukemia Cancer Diabetes Mother Arthritis HTN (hypertension) Family/Other Thyroid cancer Diabetes HTN (hypertension) Maternal Grandmother Ovarian cancer Social History Housing: Apartment Alcohol intake: never Patient Tobacco Use Status: Never used Tobacco e-Cigarette/Vaping Use: Never Used Second Hand Smoke Exposure: No service: No Current occupational status: unemployed Cognitive needs: No Hearing needs: No Vision needs: Yes Female Reproductive History Menstrual Age of Menarche: 10 control method: permanent sterilization Menopause type: natural Date of last pap smear: 12/03/22 Date of Mammogram: 11/08/23 Review of Systems Const All systems reviewed & are unremarkable except as noted in HPI and below Card Reports as per HPI Resp Reports as per HPI GI Reports as per HPI and Reports no additional complaints Reports as per HPI Physical Exam Vital Signs: Last Vital Signs BP 118/74 12/06/24 08:31 BMI result Body Mass Index 24.9 Const General: cooperative, healthy appearing and comfortable Chest Chest palpation & inspection: normal inspection of the chest and normal palpation of entire chest wall Breast/axilla inspection: normal inspection of the breasts and normal inspection of the axillae Breast/axilla palpation: normal palpation of the breasts, normal palpation of the axillae and no axillary lymphadenopathy Resp Effort & Inspection: normal respiratory effort Auscultation: clear to auscultation bilaterally Percussion: percussion normal Cardio Palpation: normal PMI Rate: regular rate Rhythm: regular rhythm Heart sounds: no murmurs and no rubs Peripheral pulses: Peripheral pulses 2+ throughout GI Inspection: Yes normal to inspection Palpation (GI): Soft to palpation, nontender, no guarding, not rigid and No hepatosplenomegaly present Percussion: Yes normal to percussion Auscultation: normal bowel sounds Rectal Exam - Female: deferred General: Yes bladder normal to palpation External Female Exam: No lesion Speculum Exam - Vagina: normal appearance of the vagina, normal palpation, normal vaginal discharge and not erythematous Speculum Exam - Cervix: normal appearance of the cervix and normal palpation Bimanual exam- vagina & uterus: normal bimanual exam, normal palpation, uterine size normal, bladder normal to palpation, consistency normal and normal palpation Bimanual Exam- Adnexa, other: normal adnexae, no masses and no tenderness Assessment & Plan Assessment & Plan (1) Well woman exam: Code(s): Z01.419 - Encounter for gynecological examination (general) (routine) without abnormal findings Category: Medical Plan: Co testing not indicated this year. Counseled the patient about the recommended dietary allowance of 1200 mg of Calcium & 600 IU of vitamin D. Mammogram ordered. Counseled the patient about screening colonoscopy, all pros and cons, risks and benefits, early detection, the patient declined a referral at this point, would like to think about it and get back to me . The patient was instructed to perform monthly self-breast exams and schedule annual exam in a year. All questions answered and the patient verbalized understanding. (2) Uterine myoma: Code(s): D25.9 - Leiomyoma of uterus, unspecified Category: Medical Plan: Will order pelvic ultrasound . Instructions given the patient to schedule an ultrasound and a follow-up. All questions answered, the patient verbalized understanding Orders: Orders MM tomosynthesis screening BI Today Z12.31 - Encounter for screening mammogram for malignant neoplasm of breast Coding Level of Care Code Est Pt Prev Care 40-64y(90755) Diagnoses Well woman exam Z01.419 Uterine myoma D25.9
== END 2024-12-06 08:53 | disposition home or self-care (01) ==
LOC: HO.HWS 08:19
PROVIDERS: PCP Internal Medicine; Visit Provider Obstetrics & Gynecology
DX: Z01.419 Encounter for gynecological examination (general) (routine) without abnormal findings (principal); D25.9 Leiomyoma of uterus, unspecified
CPT/HCPCS: 99396; 99459

== ENCOUNTER → 2024-12-06 08:19 | Outpatient (BNVA) | payer OTHER, SELFPAY | PROVIDERS: PCP Internal Medicine; Visit Provider Obstetrics & Gynecology | DX: Z01.419 Encounter for gynecological examination (general) (routine) without abnormal findings (principal); D25.9 Leiomyoma of uterus, unspecified | CPT/HCPCS: 99396; 99459 ==

== ENCOUNTER 2025-01-22 11:14 | Outpatient (REF) | payer OTHER, SELFPAY ==
--- NOTE | ~2025-01-22 | US_ITS ---
CLINICAL HISTORY: D25.9 - Leiomyoma of uterus, unspecified US pelvis transabdominal and transvaginal Comparison: None provided Findings: Transabdominal scanning performed for overall anatomy. Transvaginal scanning performed for additional detail. Anteverted uterus is 11.5 cm length. There are numerous nabothian cysts within the cervix. Three uterine fibroids were documented, a 1.3 x 1.4 x 1.4 cm submucosal fibroid within the anterior uterine body, a 2.3 x 2.4 x 2.4 cm intramural fibroid within the anterior aspect of the fundus and a 1.4 x 1.2 cm intramural fibroid within the anterior aspect of the lower uterine segment. Endometrium 12 mm thickness. Right ovary 3.2 x 1.3 x 1.4 cm. Left ovary 4.3 x 3.4 x 3.8 cm. 3.1 x 2.9 x 3.3 cm simple appearing left ovarian cyst. Normal color Doppler of both ovaries. No free fluid. IMPRESSION: 1. There is mild endometrial thickening. 2. There are 3 small uterine fibroids. 3. There is a 3.1 cm left ovarian cyst. This most likely represents a physiologic cyst but recommend ultrasound follow-up to confirm resolution. This document has been electronically signed by: Trinity Roberts MD on 01/23/2025 16:08:43
== END 2025-01-22 11:15 | disposition home or self-care (01) ==
LOC: HO.US 11:14
PROVIDERS: PCP Internal Medicine; Visit Provider Obstetrics & Gynecology
DX: D25.9 Leiomyoma of uterus, unspecified (principal)
CPT/HCPCS: 76830; 76856

== ENCOUNTER → 2025-01-22 11:16 | Outpatient (BNV) | payer OTHER, SELFPAY | PROVIDERS: PCP Internal Medicine; Visit Provider Radiology Diagnostic Radiology | DX: D25.9 Leiomyoma of uterus, unspecified (principal); N83.202 Unspecified ovarian cyst, left side | CPT/HCPCS: 76830; 76856 ==

== ENCOUNTER 2025-01-29 08:01 | Outpatient (AMB) | payer OTHER, SELFPAY ==
--- NOTE | 2025-01-29 08:08 | MHC.PC.OV ---
Vital Signs 01/29/25 08:09 Height 5 ft 2 in Weight 142 lb BMI 26.0 BP 138/82 Blood Pressure Location Lt brachial Position Sitting Intake Visit Reasons: depression Intake Note: Patient here for a follow up depression Dough Mixer Helper Required: No Accompanied by: Self / Same As Patient Allergies No Known Allergies Allergy (Verified 01/29/25 08:32) Medication List - Last Reconciled 01/29/25 by Anna Sinha MD aripiprazole (Abilify) 20 mg PO DAILY baclofen 10 mg PO BID PRN betamethasone dipropionate 0.05% 1 appl topical BID PRN 30 days cholecalciferol (vitamin D3) (Vitamin D3) 25 mcg PO DAILY 90 days clonazepam 0.5 mg PO BEDTIME fluoxetine 80 mg PO DAILY gabapentin 300 - 600 mg (1 - 2 x 300 mg) PO BEDTIME magnesium 250 mg PO DAILY meloxicam 15 mg PO DAILY 7 days metoclopramide HCl (Reglan) 10 mg PO BID naproxen 500 mg PO BID PRN omeprazole 40 mg PO DAILY 90 days zolpidem (Ambien) 10 mg PO BEDTIME PRN Tobacco use date assessed: 01/29/25 Dental Screening Dental Screen Date: 01/29/25 Did you have a dental visit in the last 12 months?: No Did you have a dental problem in the last 6 months where you did not have access to dental care?: No Was dental information given to patient?: Patient has dentist HPI HPI Comments History of Present Illness Details The patient is a 54-year-old female presenting with uterine fibroids and an ovarian cyst follow by OBGYN. She reports having three fibroids in the uterus and a 1 cm ovarian cyst, which have been monitored through ultrasounds. The patient has been scheduled for a follow-up ultrasound on February 12 to reassess the ovarian cyst. In addition to these conditions, the patient experiences gastroesophageal reflux disease, for which she takes omeprazole. She also reports insomnia, managed with Ambien, and has a history of using magnesium for migraines and sleep, although she has not taken it recently. She has mild recurrent major depression with a PHQ-9 of 5 and generalized anxiety follow-up by Psychiatry well controlled with medications. [facility] Medical History (Updated 01/29/25 @ 08:40 by Anna Sinha MD) Lumbar back pain with radiculopathy affecting left lower extremity Bilateral sciatica Leg cramps DILAN (generalized anxiety disorder) Mild recurrent major depression Left shoulder pain Left elbow pain Fibromyalgia Left shoulder pain Right knee pain Right elbow pain Depression with anxiety Insomnia Lumbar spondylosis Chronic idiopathic constipation Surgical History H/O breast biopsy History of tubal ligation Family History Father Leukemia Cancer Diabetes Mother Arthritis HTN (hypertension) Family/Other Thyroid cancer Diabetes HTN (hypertension) Maternal Grandmother Ovarian cancer Social History Housing: Apartment Alcohol intake: never Patient Tobacco Use Status: Never used Tobacco e-Cigarette/Vaping Use: Never Used Second Hand Smoke Exposure: No service: No Current occupational status: unemployed Cognitive needs: No Hearing needs: No Vision needs: Yes Female Reproductive History Menstrual Age of Menarche: 10 Questionnaire PHQ-9 Over the last 2 weeks, how often have you been bothered by any of the following problems? 1. Little interest or pleasure in doing things: several days 2. Feeling down, depressed, or hopeless: not at all 3. Trouble falling or staying asleep, or sleeping too much: several days 4. Feeling tired or having little energy: several days 5. Poor appetite or overeating: several days 6. Feeling bad about yourself - or that you are a failure or have let yourself or your family down: not at all 7. Trouble concentrating on things, such as reading the newspaper or watching television: several days 8. Moving or speaking so slowly that other people could have noticed. Or the opposite - being so fidgety or restless that you have been moving around a lot more than usual: not at all 9. Thoughts that you would be better off or of hurting yourself in some way: not at all Total score: 5 Depression Screening Interpretation: Positive Depression Screening Follow-up: Existing condition, In treatment and Follow-up Visit Requested Depression Screening Done: Yes 61991 - PHQ-9 Billing: Yes Source: Developed by Drs. Servando Gomes, Rach Kaur, Alex Olivera and colleagues, with an educational donya from [employer]. Thrive Questionnaire Date Thrive assessed: 01/28/25 I am a: Patient What is your living situation today?: I have a steady place to live Within the past 12 months, did the food you bought not last and you didn't have the money to get more?: Never true Within the past 12 months, did you worry whether your food would run out before you got money to buy more?: Never true Do you have trouble paying for medicines?: No Do you have trouble getting transportation to medical appointments?: No Do you have trouble paying your heating and electricity bill?: No Do you have trouble taking care of your child, family member or friend?: No Do you have trouble with day-to-day activities such as bathing, preparing meals, shopping, managing finances, etc.?: No Are you currently unemployed and looking for a job?: No Are you interested in more education?: No Please select the resources that you would like help with: None Currently or been in a relationship where the following occur: I choose not to answer THRIVE Score: 0 AUDIT C Alcohol Use Questionnaire (AUDIT-C) 1. How often do you have a drink containing alcohol?: Never Total Score: 0 Score Reviewed/Action Taken: No DILAN-7 AMB Questionnaire DILAN-7 Date DILAN - 7 assessed: 01/29/25 Feeling nervous, anxious, or on edge: 1 = Several days Not being able to stop or control worryin = Several days Worrying too much about different things: 1 = Several days Trouble relaxin = Several days Being so restless that it is hard to sit still: 1 = Several days Becoming easily annoyed or irritable: 0 = Not at all Feeling afraid as if something awful might happen: 0 = Not at all Total DILAN-7 score (0-4 normal; 5-9 mild; 10-14 moderate; 15-21 severe): 5 Source: Developed by Drs. Servando Gomes, Rach Kaur, Alex Olivera and colleagues, with an educational donya from [employer]. DILAN-7 Assessment Billing DILAN-7 Assessment Tool: DILAN-7 Assessment 77167 Review of Systems Const All systems reviewed & are unremarkable except as noted in HPI and below Card Denies chest pain at rest, Denies chest pain with activity, Denies edema, Denies irregular heart rhythm, Denies claudication, Denies dyspnea, Denies dyspnea on exertion, Denies orthopnea, Denies paroxysmal nocturnal dyspnea and Denies slow heart rate Resp Denies cough, Denies dyspnea and Denies dyspnea on exertion GI Denies abdominal pain, Denies change in bowel habits, Denies excessive flatus, Denies nausea and Denies vomiting Physical exam (Primary Care) Vital Signs: Last Vital Signs BP 138/82 01/29/25 08:09 BMI result Body Mass Index 26.0 Tobacco/Smoking Status: Tobacco use Status Tobacco use date assessed 01/29/25 01/29/25 08:16 Patient Tobacco Use Status Never used Tobacco 01/29/25 08:16 e-Cigarette/Vaping Use Never Used 01/29/25 08:16 PHQ-9: PHQ-9 Score PHQ-9: Total score 5 01/29/25 08:16 Depression Screening Interpretation: Positive Depression Screening Follow-up: Existing condition, In treatment and Follow-up Visit Requested Thrive Assessment: Date of Thrive Assessment Date Thrive assessed 01/28/25 01/29/25 08:16 Currently or been in a relationship where the following occur: I choose not to answer Resp Effort & Inspection: normal respiratory effort Auscultation: clear to auscultation bilaterally Cardio Jugular venous distension: no JVD Rate: regular rate Rhythm: regular rhythm Heart sounds: S1 normal heart sound present and S2 normal heart sound present Extrem General: Yes full ROM Coding Level of Care Code Est Pt Level 4 (51934) Complex EM visit Add On G2211 Diagnoses Mild recurrent major depression F33.0 DILAN (generalized anxiety disorder) F41.1 Gastroesophageal reflux disease without esophagitis K21.9 Esophagitis presence: without esophagitis Right leg pain M79.604 Additional Codes PHQ-9 - 30787 - PHQ-9 Billing: Yes ([id number]) DILAN-7 Assessment Billing - DILAN-7 Assessment Tool: DILAN-7 Assessment 46166 ([id number]) Time Spent (min) 22 Assessment & Plan Assessment & Plan (1) Mild recurrent major depression: Code(s): F33.0 - Major depressive disorder, recurrent, mild Category: Medical (2) DILAN (generalized anxiety disorder): Code(s): F41.1 - Generalized anxiety disorder Category: Medical (3) GERD (gastroesophageal reflux disease): Code(s): K21.9 - Gastro-esophageal reflux disease without esophagitis Category: Medical Qualifiers: Esophagitis presence: without esophagitis Qualified Code(s): K21.9 - Gastro-esophageal reflux disease without esophagitis (4) Right leg pain: Code(s): M79.604 - Pain in right leg Category: Medical Plan The plan includes scheduling an ultrasound to monitor the ovarian cyst and uterine fibroids, with the next ultrasound set for February 12. Additionally, a mammography is scheduled for February 19 as part of the patient's preventative care regimen. The patient is advised to continue her current medications, including omeprazole for gastroesophageal reflux disease and Ambien for insomnia. She is also encouraged to follow up with a non destructive testing scientist for further evaluation and management of her fibroids and cyst. Patient has right leg pain that started few months ago and will have ultrasound to rule out DVT. Patient was informed and verbally consented to the use of an ambient scribe for clinic note documentation during this visit. During the visit, I discussed with the patient the importance of monitoring her uterine fibroids and ovarian cyst through regular ultrasounds, with the next one scheduled for February 12. We also reviewed her preventative care plan, including a mammography scheduled for February 19. I advised her to continue her current medication regimen and to follow up with a non destructive testing scientist for further evaluation. Orders: Orders US venous duplex LE RT Today M79.604 - Pain in right leg Patient Instructions: - Continue taking omeprazole for gastroesophageal reflux disease as prescribed. - Take Ambien for insomnia as needed. - Attend the scheduled ultrasound on February 12 to monitor the ovarian cyst and uterine fibroids. - Attend the mammography appointment on February 19. - Follow up with a non destructive testing scientist for further evaluation of fibroids and cyst.
[2025-01-29 08:09] VITALS: BP 138/82; BMI 26.0
== END 2025-01-29 08:41 | disposition home or self-care (01) ==
LOC: HO.HMCH 08:02
PROVIDERS: PCP Internal Medicine; Visit Provider Internal Medicine
DX: F33.0 Major depressive disorder, recurrent, mild (principal); F41.1 Generalized anxiety disorder; K21.9 Gastro-esophageal reflux disease without esophagitis; M79.604 Pain in right leg

== ENCOUNTER → 2025-01-29 08:01 | Outpatient (BNVA) | payer OTHER, SELFPAY | PROVIDERS: PCP Internal Medicine; Visit Provider Internal Medicine | DX: K21.9 Gastro-esophageal reflux disease without esophagitis (principal); N83.209 Unspecified ovarian cyst, unspecified side; F33.0 Major depressive disorder, recurrent, mild; F41.1 Generalized anxiety disorder; M79.604 Pain in right leg | CPT/HCPCS: 96127; 99212 ==

== ENCOUNTER 2025-02-12 09:56 | Outpatient (REF) | payer OTHER, SELFPAY ==
--- NOTE | ~2025-02-12 | US_ITS ---
EXAMINATION: US LOWER EXTREMITY VEINS LIMITED FOLLOW UP RIGHT HISTORY: M79.604 - Pain in right leg COMPARISON: There are no prior studies available for comparison. TECHNIQUE: Duplex and color Doppler sonographic examination of the deep venous system of the right lower extremity was performed. FINDINGS: The common femoral, superficial femoral, and popliteal veins are patent demonstrating normal compressibility, spontaneous flow, and augmentation. There is a normal color and spectral Doppler waveform appearance of the visualized deep venous system above the knee. The posterior tibial and peroneal veins are patent. There is a complex appearing mass at the posteromedial aspect of the knee measuring 4.2 x 1.2 x 1.6 cm which may represent a Sainz's cyst. US/US venous duplex LE RT IMPRESSION: 1. No evidence of acute DVT in the right lower extremity. 2. Complex appearing 4.2 x 1.2 x 1.6 cm mass at the posteromedial aspect of the knee which may represent a Sainz's cyst. Clinical correlation is recommended. Electronically signed by: Servando Nye MD 02/12/2025 10:49 AM EDT
== END 2025-02-12 09:57 | disposition home or self-care (01) ==
LOC: HO.US 09:56
PROVIDERS: PCP Internal Medicine; Visit Provider Internal Medicine
DX: M79.604 Pain in right leg (principal)
CPT/HCPCS: 93971

== ENCOUNTER → 2025-02-12 09:58 | Outpatient (BNV) | payer OTHER, SELFPAY | PROVIDERS: PCP Internal Medicine; Visit Provider Radiology Diagnostic Radiology | DX: R22.41 Localized swelling, mass and lump, right lower limb (principal) | CPT/HCPCS: 93971 ==

== ENCOUNTER 2025-02-19 11:27 | Outpatient (REF) | payer OTHER, SELFPAY | END 2025-02-19 11:28 | disposition home or self-care (01) | LOC: HO.MAMMO 11:27 | PROVIDERS: PCP Internal Medicine; Visit Provider Internal Medicine | DX: Z12.31 Encounter for screening mammogram for malignant neoplasm of breast (principal) | CPT/HCPCS: 77063; 77067 ==

== ENCOUNTER → 2025-02-19 12:00 | Outpatient (BNV) | payer OTHER, SELFPAY | PROVIDERS: PCP Internal Medicine; Visit Provider Internal Medicine | DX: Z12.31 Encounter for screening mammogram for malignant neoplasm of breast (principal) | CPT/HCPCS: 77063; 77067 ==

== ENCOUNTER 2025-03-19 14:10 | Outpatient (AMB) | payer OTHER, SELFPAY ==
[2025-03-19 14:34] VITALS: BMI 26.0
--- NOTE | 2025-03-19 14:34 | MHC.OFFVIS ---
Vital Signs 03/19/25 14:34 Height 5 ft 2 in Weight 142 lb BMI 26.0 Intake Visit Reasons: Ultrasound follow up/do not ethel Distributor Operator Required: Yes Distributor Operator Language: Ultrasound Tech Services: Distributor Operator Present (in person) Distributor Operator Name: Pura DEGROOT Information Interpreted: non-clinical & clinical Accompanied by: Self / Same As Patient Allergies No Known Allergies Allergy (Verified 03/19/25 14:34) HPI Comments Details: Presenting for follow-up ultrasound regarding uterine myoma . The patient is doing well with no complaints no abnormal uterine bleeding, pelvic pressure or pain. Pelvic ultrasound done recently showed the following: Anteverted uterus is 11.5 cm length. There are numerous nabothian cysts within the cervix. Three uterine fibroids were documented, a 1.3 x 1.4 x 1.4 cm submucosal fibroid within the anterior uterine body, a 2.3 x 2.4 x 2.4 cm intramural fibroid within the anterior aspect of the fundus and a 1.4 x 1.2 cm intramural fibroid within the anterior aspect of the lower uterine segment. Endometrium 12 mm thickness. Right ovary 3.2 x 1.3 x 1.4 cm. Left ovary 4.3 x 3.4 x 3.8 cm. 3.1 x 2.9 x 3.3 cm simple appearing left ovarian cyst. Normal color Doppler of both ovaries. No free fluid. [facility] Medical History Lumbar back pain with radiculopathy affecting left lower extremity Bilateral sciatica Leg cramps DILAN (generalized anxiety disorder) Mild recurrent major depression Left shoulder pain Left elbow pain Fibromyalgia Left shoulder pain Right knee pain Right elbow pain Depression with anxiety Insomnia Lumbar spondylosis Chronic idiopathic constipation Surgical History H/O breast biopsy History of tubal ligation Family History Father Leukemia Cancer Diabetes Mother Arthritis HTN (hypertension) Family/Other Thyroid cancer Diabetes HTN (hypertension) Maternal Grandmother Ovarian cancer Social History Housing: Apartment Alcohol intake: never Patient Tobacco Use Status: Never used Tobacco e-Cigarette/Vaping Use: Never Used Second Hand Smoke Exposure: No service: No Current occupational status: unemployed Cognitive needs: No Hearing needs: No Vision needs: Yes Female Reproductive History Menstrual Age of Menarche: 10 Review of Systems Const All systems reviewed & are unremarkable except as noted in HPI and below Reports as per HPI and Reports no additional complaints GI Reports no additional complaints Reports no additional complaints Physical Exam Vital Signs: BMI result Body Mass Index 26.0 Assessment & Plan Assessment & Plan (1) Uterine myoma: Code(s): D25.9 - Leiomyoma of uterus, unspecified Category: Medical Plan: Discussed with the patient the findings on pelvic ultrasound & the risk of myosarcoma; in addition reviewed with the patient that malignancy and pre malignancy cannot be ruled out without hysterectomy for pathological evaluation ; furthermore, explained to the patient the limitation of pelvic ultrasound and endometrial biopsy in the setting. Discussed with the patient the options of treatment including expectant management versus hysterectomy; the pros and cons, risks benefits of each approach were discussed with the patient including the fact that in cases of myosarcoma, surgical treatment can lead to early diagnosis and positively affects the prognosis; after further discussion, the patient decided to proceed with expectant management. Will repeat pelvic ultrasound periodically. Instructions given to patient to call in case any of the following occurs: pressure symptoms, abnormal uterine bleeding, pelvic pain; and to schedule a six-months pelvic ultrasound (order placed) and a follow-up appointment . All questions answered, the patient verbalized understanding and agreed with the plan . (2) Ovarian cyst: Code(s): N83.209 - Unspecified ovarian cyst, unspecified side Category: Medical Plan: Discussed with the patient the finding on ultrasound showing 3.5 cm left simple ovarian cyst, recommended repeat ultrasound in six-month, order placed. All questions answered, the patient verbalized understanding Orders: Orders US pelvic and transvaginal 6 Months D25.9 - Leiomyoma of uterus, unspecified, N83.209 - Unspecified ovarian cyst, unspecified side Coding Level of Care Code Est Pt Level 3 (08518) Diagnoses Uterine myoma D25.9 Ovarian cyst N83.209
== END 2025-03-19 14:44 | disposition home or self-care (01) ==
LOC: HO.HWS 14:11
PROVIDERS: PCP Internal Medicine; Visit Provider Obstetrics & Gynecology
DX: D25.9 Leiomyoma of uterus, unspecified (principal); N83.209 Unspecified ovarian cyst, unspecified side
CPT/HCPCS: 99213

== ENCOUNTER → 2025-03-19 14:10 | Outpatient (BNVA) | payer OTHER, SELFPAY | PROVIDERS: PCP Internal Medicine; Visit Provider Obstetrics & Gynecology | DX: N83.292 Other ovarian cyst, left side (principal) | CPT/HCPCS: 99212 ==